=== PATIENT | male | born 1965 ===

== ENCOUNTER 2017-02-10 20:40 | Inpatient (IN) | payer OTHER ==
[2017-02-10] MEDS ORDERED: Multivitamin (MVI) 10 ML, Thiamine 100 MG, Folic Acid 1 MG in Sodium Chloride 0.9% 1,00... IV STA (21:19)
[2017-02-10 21:33] LABS: BASO # 0.1 K/uL (0.0-0.2); BASO % 1.4 % (0.0-2.0); EOS # 0.2 K/uL (0.0-0.7); EOS % 3.4 % (0.0-4.0); HEMATOCRIT 40.1 % (35.0-51.0); LYMPH # 1.7 K/uL (1.0-4.3); MEAN CELL VOLUME 99.5 fL (80.0-94.0); MEAN CORPUSCULAR HEMOGLOBIN 34.1 pg (27.0-31.0); MEAN CORPUSCULAR HGB CONC 34.3 g/dL (33.0-37.0); MEAN PLATELET VOLUME 8.3 fL (7.2-11.7); MONO # 0.6 K/uL (0.0-0.8); MONO % 10.9 % (0.0-10.0); RED CELL DISTRIBUTION WIDTH 13.2 % (11.5-14.5); WHITE BLOOD COUNT 5.8 K/uL (4.8-10.8)
[2017-02-10 21:36] LABS: CHLORIDE 103 mmol/L (98-107); POTASSIUM 3.7 mmol/L (3.6-5.2); SODIUM 141 mmol/L (132-148)
[2017-02-10 21:37] LABS: INR 1.1
[2017-02-10 21:38] LABS: AST/SGOT 43 U/L (17-59); BILIRUBIN,TOTAL 0.9 mg/dL (0.2-1.3); CARBON DIOXIDE 26 mmol/L (22-30); GFR AFRICAN-AMERICAN > 60
[2017-02-10 21:39] LABS: ALB/GLOB RATIO 1.4 (1.0-2.1); ALKALINE PHOSPHATASE 58 U/L (38-126); ALT/SGPT 39 U/L (21-72); BLOOD UREA NITROGEN 17 mg/dL (9-20); CALCIUM 8.9 mg/dl (8.6-10.4); GLUCOSE,RANDOM 77 mg/dL (75-110); MAGNESIUM 1.8 mg/dL (1.6-2.3); TOTAL PROTEIN 7.8 g/dL (6.3-8.3)
[2017-02-10 21:40] LABS: ALCOHOL SERUM < 10 mg/dl (0-10)
--- NOTE | 2017-02-10 22:06 | CT ---
EXAM: CT Head Without Intravenous Contrast CLINICAL HISTORY: 52 years old, male; Signs and symptoms; Other: Syncope, seizures, headaches; Additional info: Syncope vs. Seizures, headaches TECHNIQUE: Axial computed tomography images of the head/brain without intravenous contrast. This CT exam was performed using one or more of the following dose reduction techniques: automated exposure control, adjustment of the mA and/or kV according to patient size, and/or use of iterative reconstruction technique. EXAM DATE/TIME: Exam ordered 02/10/2017 9:18 PM COMPARISON: No relevant prior studies available. FINDINGS: Brain: There is a ramon-cisterna magna No hemorrhage. No significant white matter disease. No edema. Ventricles: Unremarkable. No ventriculomegaly. Bones/joints: Unremarkable. No acute fracture. Soft tissues: Unremarkable. Sinuses: Unremarkable as visualized. No acute sinusitis. Mastoid air cells: Unremarkable as visualized. No mastoid effusion. IMPRESSION: 1. No acute findings. 2. Ramon-cisterna magna
--- NOTE | 2017-02-10 22:23 | C.PDOC ---
History Of Present Illness Pt states he has been "passing out", latest episode 3 hours ago. He states that he quit drinking alcohol 6 days ago. Time Seen by Provider: 02/10/17 21:08 Chief Complaint (Nursing): Syncope History Per: Patient, [employer] History/Exam Limitations: language barrier Onset/Duration Of Symptoms: Days (few) Current Symptoms Are (Timing): Still Present Number Of Syncopal Episodes: 3 Seizure Or Post-ictal Symptoms: Post-ictal Period (?). denies: Incontinent Of Urine, Incontinent Of Stool, Bit Tongue Possible Causative Factor(s): Other (Recently stopped drinking alcohol) Severity: Moderate Additional History Per: Prior Records Past Medical History Reviewed: Historical Data, Nursing Documentation, Vital Signs Vital Signs: Last Vital Signs Temp 99 F 02/10/17 20:48 Pulse 69 02/10/17 22:29 Resp 18 02/10/17 22:29 BP 114/72 02/10/17 22:29 Pulse Ox 96 02/10/17 22:29 - Medical History Other PMH: Alcohol abuse Surgical History: No Surg Hx Family History: States: Unknown Family Hx - Social History Hx Alcohol Use: Yes Hx Substance Use: No Review Of Systems Except As Marked, All Systems Reviewed And Found Negative. Constitutional: Negative for: Fever Cardiovascular: Negative for: Chest Pain Respiratory: Negative for: Shortness of Breath Gastrointestinal: Negative for: Vomiting, Abdominal Pain Genitourinary: Negative for: Dysuria Musculoskeletal: Negative for: Neck Pain Skin: Negative for: Rash Neurological: Positive for: Headache. Negative for: Weakness Psych: Negative for: Psychosis Physical Exam - Physical Exam Appears: No Acute Distress Skin: Normal Color, Warm, Dry, No Rash Head: Atraumatic, Normacephalic Eye(s): bilateral: PERRL, EOMI Tongue: No Bite, Other (Fasciculations) Neck: Normal ROM, No Midline Cervical Tenderness, No Step Off Deformity, Supple Cardiovascular: Rhythm Regular Respiratory: Normal Breath Sounds, No Accessory Muscle Use Gastrointestinal/Abdominal: Soft, No Tenderness Back: No CVA Tenderness Extremity: Normal ROM, No Deformity Neurological/Psych: Oriented x3, Normal Motor, Normal Sensation, Other (Pt is tremulous) ED Course And Treatment - Laboratory Results Result Diagrams: 02/10/17 21:23 02/10/17 21:23 Lab Interpretation: No Acute Changes ECG: Interpreted By Me, Viewed By Me ECG Rhythm: Sinus Rhythm, R BBB (incomplete), Nonspecific Changes Rate From EC O2 Sat by Pulse Oximetry: 96 Pulse Ox Interpretation: Normal - CT Scan/US CT head Other Rad Studies (CT/US): Read By Radiologist, Radiology Report Reviewed CT/US Interpretation: IMPRESSION: 1. No acute findings. . 2. Caden-cisterna magna Progress - Interventions Interventions:: Observation, Intravenous fluid - Medications Administered Intravenous: Other (Ativan) - Data Reviewed Data Reviewed: Lab, Diagnostic imaging, EKG, Old records - Patient Status Patient status: Partially improved - Continuity of Care Discussed patient case with:: Patient, ED Nurse, On-call PMD-pt unassigned - Patient Plan Patient Plan: Admission, Telemetry Medical Decision Making Medical Decision Making: Syncopal episodes vs. alcohol withdrawal seizures. Disposition Discussed With DrArmando: Anish Morales Comment: He accepted pt on hospitalist service. Doctor Will See Patient In The: Hospital Counseled Patient/Family Regarding: Studies Performed, Diagnosis - Disposition Disposition: HOSPITALIZED Disposition Time: 22:47 Condition: FAIR - Clinical Impression Clinical Impression: Syncopal episodes, Alcohol withdrawal
--- NOTE | 2017-02-10 23:31 | CP.PCM.HP ---
<Fausto Pickering - Last Filed: 02/10/17 23:34> History of Present Illness - History of Present Illness History of Present Illness: This is a 52 yo male with past medical hx of alcohol abuse and dizziness presenting s/p syncopal episode. Pt was at his job earlier in the day. He works with boilers. This was about 3 PM. He was standing up and suddenly without warning collapsed to the ground. He cannot remember really the circumstances leading up to the event. The next thing he remembers is waking up on the ground feeling confused and weak. At that time, his co workers came to help him up. But the event was not witnessed. He continued to work for another 2 hours and then apparently a family member came to pick him up and took him into the hospital. He reports headache. He also says he has been feeling very dizzy in the past week. He denies fevers, chills, cough, vomiting, diarrhea, hematuria, bloody BMs. PMH: Alcohol abuse PSH: Left arm sx Allergies: NKDA Current home meds: none FH: Denies Social hx: No smoking. Reports drinking 40 beers daily (asked question multiple times). Has been heavy drinker for 3 yrs. No illegal drug use. Originally from [place]. Lives alone. Present on Admission - Present on Admission Any Indicators Present on Admission: No History of DVT/PE: No History of Uncontrolled Diabetes: No Urinary Catheter: No Decubitus Ulcer Present: No Review of Systems - Review of Systems All systems: reviewed and no additional remarkable complaints except Review of Systems: Negative except as per HPI. Past Patient History - Infectious Disease Hx of Infectious Diseases: None - Tetanus Immunizations Tetanus Immunization: Unknown - Past Medical History & Family History Past Medical History?: Yes Past Family History: Reviewed and not pertinent - Past Social History Smoking Status: Never Smoked Chewing Tobacco Use: No Cigar Use: No Alcohol: > 2 Drinks/Day Drugs: Denies Home Situation {Lives}: Alone Domestic Violence: Negative - PSYCHIATRIC Hx Substance Use: No - SURGICAL HISTORY Hx Surgeries: No Meds Allergies/Adverse Reactions: Allergies Allergy/AdvReac Type Severity Reaction Status Date / Time No Known Allergies Allergy Verified 02/10/17 20:48 Physical Exam - Constitutional Appears: Non-toxic, No Acute Distress - Head Exam Head Exam: ATRAUMATIC, NORMAL INSPECTION, NORMOCEPHALIC - Eye Exam Eye Exam: EOMI - ENT Exam ENT Exam: Mucous Membranes Moist - Neck Exam Neck exam: Positive for: Full Rom, Normal Inspection - Respiratory Exam Respiratory Exam: NORMAL BREATHING PATTERN. absent: Respiratory Distress - Cardiovascular Exam Cardiovascular Exam: +S1, +S2 - GI/Abdominal Exam GI & Abdominal Exam: Normal Bowel Sounds, Soft. absent: Tenderness - Extremities Exam Extremities exam: Positive for: full ROM, normal inspection - Neurological Exam Neurological exam: Alert, Oriented x3 - Psychiatric Exam Psychiatric exam: Normal Affect, Normal Mood - Skin Skin Exam: Dry, Intact, Normal Color, Warm Results - Vital Signs Recent Vital Signs: Last Vital Signs Temp 99 F 02/10/17 20:48 Pulse 69 02/10/17 22:29 Resp 18 02/10/17 22:29 BP 114/72 02/10/17 22:29 Pulse Ox 96 02/10/17 22:48 - Labs Result Diagrams: 02/10/17 21:23 02/10/17 21:23 Assessment & Plan - Assessment and Plan (Free Text) Assessment: This is a 52 yo male with past medical hx of alcohol abuse presenting with syncopal episode 1. Syncope -EKG -trops x 3 -urine drug screen -prolactin level -asa 81 mg po daily -crestor 5 mg po hs -neuro consult. Dr. Mg. recs appreciated -echo -carotid dopplers -orthostatics -EEG -HGB a1c -lipid panel 2. Hx of alcohol abuse -[facility] protocol -seizure precautions -prolactin level pending 3. GI/DVT ppx - protonix 40 daily -regular diet discussed with hospitalist <Anish Morales - Last Filed: 02/11/17 06:37> Results - Vital Signs Recent Vital Signs: Last Vital Signs Temp 98.1 F 02/11/17 03:45 Pulse 55 L 02/11/17 04:14 Resp 20 02/11/17 03:45 BP 119/69 02/11/17 03:45 Pulse Ox 100 02/11/17 03:45 - Labs Result Diagrams: 02/11/17 03:36 02/11/17 03:36 Labs: Laboratory Results - last 24 hr 02/10/17 02/10/17 02/10/17 23:27 23:27 23:34 WBC RBC Hgb Hct MCV MCH MCHC RDW Plt Count MPV Neut % (Auto) Lymph % (Auto) Howard % (Auto) Eos % (Auto) Baso % (Auto) Neut # Lymph # Howard # Eos # Baso # Sodium Potassium Chloride Carbon Dioxide Anion Gap BUN Creatinine Est GFR ( Amer) Est GFR (Non-Af Amer) Random Glucose Hemoglobin A1c Calcium Phosphorus Magnesium Total Bilirubin AST ALT Alkaline Phosphatase Troponin I Total Protein Albumin Globulin Albumin/Globulin Ratio Triglycerides Cholesterol LDL Cholesterol Direct HDL Cholesterol Prolactin 17.3 Urine Color Yellow Urine Clarity Clear Urine pH 6.0 Ur Specific [place] 1.025 Urine Protein Negative Urine Glucose (UA) Normal Urine Ketones Negative Urine Blood Negative Urine Nitrate Negative Urine Bilirubin Negative Urine Urobilinogen Normal Ur Leukocyte Esterase Neg Urine WBC (Auto) < 1 Urine RBC (Auto) 1 Urine Opiates Screen Negative Urine Methadone Screen Negative Ur Barbiturates Screen Negative Ur Phencyclidine Scrn Negative Ur Amphetamines Screen Negative U Benzodiazepines Scrn Negative U Oth Cocaine Metabols Negative U Cannabinoids Screen Negative 02/11/17 02/11/17 02/11/17 03:36 03:36 03:36 WBC 4.4 L RBC 3.84 L Hgb 13.1 Hct 38.2 MCV 99.6 H MCH 34.2 H MCHC 34.4 RDW 13.1 Plt Count 150 MPV 8.3 Neut % (Auto) 43.3 L Lymph % (Auto) 39.2 Howard % (Auto) 12.1 H Eos % (Auto) 5.2 H Baso % (Auto) 0.2 Neut # 1.9 Lymph # 1.7 Howard # 0.5 Eos # 0.2 Baso # 0.0 Sodium 137 Potassium 3.3 L Chloride 105 Carbon Dioxide 23 Anion Gap 13 BUN 13 Creatinine 0.6 L Est GFR ( Amer) > 60 Est GFR (Non-Af Amer) > 60 Random Glucose 80 Hemoglobin A1c 5.1 Calcium 8.2 L Phosphorus 3.9 Magnesium 1.5 L Total Bilirubin 0.9 AST 37 ALT 40 Alkaline Phosphatase 58 Troponin I < 0.0120 Total Protein 7.1 Albumin 3.9 Globulin 3.1 Albumin/Globulin Ratio 1.3 Triglycerides 49 Cholesterol 145 LDL Cholesterol Direct 71 HDL Cholesterol 59 Prolactin Urine Color Urine Clarity Urine pH Ur Specific [place] Urine Protein Urine Glucose (UA) Urine Ketones Urine Blood Urine Nitrate Urine Bilirubin Urine Urobilinogen Ur Leukocyte Esterase Urine WBC (Auto) Urine RBC (Auto) Urine Opiates Screen Urine Methadone Screen Ur Barbiturates Screen Ur Phencyclidine Scrn Ur Amphetamines Screen U Benzodiazepines Scrn U Oth Cocaine Metabols U Cannabinoids Screen Assessment & Plan - Date & Time Date: 02/11/17 (I have seen and examined the patient. I agree with the findings and plan of care as documented by Dr. Pickering. Patient with syncope. CT head negative. Neuro consult. ROMIx3 with ekg. Tele. 2D Echo. Carotid dopplers. Orthostatics. Fall precautions. Seizure Precautions. Also with alcohol abuse. CIWA protocol. Monitor for acute changes.) Time: 06:35 Attending/Attestation - Attestation I have personally seen and examined this patient.: Yes I have fully participated in the care of the patient.: Yes I have reviewed all pertinent clinical information: Yes
[2017-02-10 23:32] LABS: RBC URINE 1 /hpf (0-3); URINE BILIRUBIN NEGATIVE (NEGATIVE); URINE COLOR Yellow (YELLOW); URINE GLUCOSE (UA) NORMAL (Normal); URINE KETONE NEGATIVE (NEGATIVE); URINE LEUKOCYTE ESTERASE NEG Leu/uL (Negative); URINE PROTEIN NEGATIVE (NEGATIVE); URINE UROBILINOGEN NORMAL mg/dL (0.2-1.0); WBC URINE < 1 /hpf (0-5)
[2017-02-10 23:36] LABS: URINE BLOOD NEGATIVE (NEGATIVE)
[2017-02-11 00:45] VITALS: RESP 20
[2017-02-11 03:38] LABS: BASO % 0.2 % (0.0-2.0); EOS # 0.2 K/uL (0.0-0.7); EOS % 5.2 % (0.0-4.0); HEMATOCRIT 38.2 % (35.0-51.0); LYMPH # 1.7 K/uL (1.0-4.3); LYMPH % 39.2 % (20.0-40.0); MEAN CELL VOLUME 99.6 fL (80.0-94.0); MEAN CORPUSCULAR HEMOGLOBIN 34.2 pg (27.0-31.0); MEAN CORPUSCULAR HGB CONC 34.4 g/dL (33.0-37.0); MEAN PLATELET VOLUME 8.3 fL (7.2-11.7); MONO # 0.5 K/uL (0.0-0.8); MONO % 12.1 % (0.0-10.0); RED CELL DISTRIBUTION WIDTH 13.1 % (11.5-14.5); WHITE BLOOD COUNT 4.4 K/uL (4.8-10.8)
[2017-02-11 03:48] LABS: CHLORIDE 105 mmol/L (98-107); SODIUM 137 mmol/L (132-148)
[2017-02-11 03:49] LABS: POTASSIUM 3.3 mmol/L (3.6-5.2)
[2017-02-11 03:50] LABS: CHOLESTEROL 145 mg/dL (0-199); GFR AFRICAN-AMERICAN > 60
[2017-02-11 03:51] LABS: ALB/GLOB RATIO 1.3 (1.0-2.1); ALKALINE PHOSPHATASE 58 U/L (38-126); ALT/SGPT 40 U/L (21-72); AST/SGOT 37 U/L (17-59); BILIRUBIN,TOTAL 0.9 mg/dL (0.2-1.3); BLOOD UREA NITROGEN 13 mg/dL (9-20); CALCIUM 8.2 mg/dl (8.6-10.4); CARBON DIOXIDE 23 mmol/L (22-30); GLUCOSE,RANDOM 80 mg/dL (75-110); PHOSPHOROUS 3.9 mg/dL (2.5-4.5); TOTAL PROTEIN 7.1 g/dL (6.3-8.3)
[2017-02-11 03:52] LABS: MAGNESIUM 1.5 mg/dL (1.6-2.3)
[2017-02-11] MEDS ORDERED: Potassium Chloride 20 mEq ER Tab PO ONE (11:45)
[2017-02-11] MEDS: Magnesium Sulfate 1 gm in D5W 1 GM/100 ML BAG IVPB SCH ×2 (11:56→13:00)
[2017-02-11] MEDS ORDERED: Magnesium Sulfate 1 gm in D5W 1 GM/100 ML BAG IVPB ONE (14:36)
--- NOTE | 2017-02-11 15:30 | CP.PCM.PN ---
<Xiomara Hernandez - Last Filed: 02/11/17 15:30> Subjective - Date & Time of Evaluation Date of Evaluation: 02/11/17 Time of Evaluation: 09:00 - Subjective Subjective: Medicine Progress Note- Dr. Blackwood's Service: Patient seen and examined at bedside this AM. Patient reports feeling better this morning. Admits to several falls over the past week with associated LOC. Patient admits to heavy alcohol use (up to 40 cans of beer on a daily basis). However, drinking occurs in intervals lasting anywhere from 1 week of binge drinking to 1 month. He associates symptoms of unsteadiness and falls to not drinking over the past week. When asked how he did not drink over the past week , pt states he went to [place] for work without money on purpose. He has been anxious all week from lack of ETOH. Denies seizures. Admits to SOB after walking 1/2 a block which is also new over the past week. Objective - Vital Signs/Intake and Output Vital Signs (last 24 hours): Temp Pulse Resp BP Pulse Ox 98.7 F 57 L 20 125/68 100 02/11/17 08:52 02/11/17 08:52 02/11/17 08:52 02/11/17 08:52 02/11/17 08:52 - Medications Medications: Current Medications Chlordiazepoxide (Librium) 25 mg PO Q6 KRISTIN PRN Reason: Taper Stop: 02/15/17 11:59 Last Admin: 02/11/17 11:58 Dose: 25 mg Folic Acid (Folic Acid) 1 mg PO DAILY [facility] Last Admin: 02/11/17 11:10 Dose: 1 mg Magnesium Sulfate/Dextrose (Magnesium Sulfate 1 Gm/100 Ml D5w) 1 gm in 100 mls @ 100 mls/hr IVPB ONCE ONE Stop: 02/11/17 15:35 Lorazepam (Ativan) 1 mg IVP Q2 PRN PRN Reason: Seizure activity Pantoprazole Sodium (Protonix Inj) 40 mg IVP DAILY [facility] Last Admin: 02/11/17 11:10 Dose: 40 mg Rosuvastatin Calcium (Crestor) 5 mg PO HS [facility] Last Admin: 02/11/17 00:38 Dose: 5 mg Thiamine HCl (Vitamin B1 Tab) 100 mg PO DAILY [facility] Last Admin: 02/11/17 11:10 Dose: 100 mg - Labs Labs: 02/11/17 03:36 02/11/17 03:36 PT 11.9 SECONDS (9.7-12.2) 02/10/17 21:23 INR 1.1 02/10/17 21:23 APTT 30 SECONDS (21-34) 02/10/17 21:23 - Constitutional Appears: No Acute Distress - Head Exam Head Exam: NORMAL INSPECTION, NORMOCEPHALIC - Eye Exam Eye Exam: EOMI, Normal appearance, PERRL. absent: Scleral icterus Additional comments: NO nystagmus - ENT Exam ENT Exam: Mucous Membranes Moist - Respiratory Exam Respiratory Exam: Clear to Ausculation Bilateral, NORMAL BREATHING PATTERN - Cardiovascular Exam Cardiovascular Exam: REGULAR RHYTHM, +S1, +S2 - GI/Abdominal Exam GI & Abdominal Exam: Soft. absent: Distended, Tenderness - Extremities Exam Extremities Exam: Normal Inspection. absent: Pedal Edema Additional comments: +b/l UE tremor - Back Exam Back Exam: NORMAL INSPECTION - Neurological Exam Neurological Exam: Alert, Awake, Oriented x3 Neuro motor strength exam: Left Upper Extremity: 5, Right Upper Extremity: 5, Left Lower Extremity: 5, Right Lower Extremity: 5 - Psychiatric Exam Psychiatric exam: Normal Affect, Normal Mood - Skin Skin Exam: Normal Color, Warm Assessment and Plan (1) Syncopal episodes Assessment & Plan: Neurology consult- Dr. Umanzor- help appreciated Head CT negative for IC bleed. Positive for Caden Cysterna Magna. Troponin negative X3. EKG on admission shows NSR 63 bpm, RBB Prolactin WNL on admission UDS and Alcohol negative. f/u EEG f/u carotid dopplers f/u 2D ECHO f/u orthostatic VS f/u Vitamin B12, Folate, TSH Status: Acute (2) Alcohol abuse Assessment & Plan: [facility] protocol Received 1 banana bag * Librium taper- day 1 * Ativan Q2H PRN seizure * Folic Acid 1 mg PO daily * MV * Thiamine 100 mg PO daily Neurochecks Q4H Fall risk protocol Seizure precautions Aspiration precautions Status: Acute (3) Electrolyte abnormality Assessment & Plan: K+: 3.3, Mg+: 1.5 today. Magnesium and potassium replaced today. Status: Acute (4) Prophylactic measure Assessment & Plan: Lovenox 40 mg PO daily Protonix 40 mg IVP daily- monitor platelets. SCDs Status: Acute <Saadia Blackwood V - Last Filed: 02/11/17 22:28> Objective - Vital Signs/Intake and Output Vital Signs (last 24 hours): Temp Pulse Resp BP Pulse Ox 98 F 57 L 20 110/64 97 02/11/17 15:47 02/11/17 15:47 02/11/17 15:47 02/11/17 15:47 02/11/17 15:47 - Medications Medications: Current Medications Chlordiazepoxide (Librium) 25 mg PO Q6 [facility] PRN Reason: Taper Stop: 02/15/17 11:59 Last Admin: 02/11/17 18:05 Dose: 25 mg Enoxaparin Sodium (Lovenox) 40 mg SC DAILY [facility] Folic Acid (Folic Acid) 1 mg PO DAILY [facility] Last Admin: 02/11/17 11:10 Dose: 1 mg Lorazepam (Ativan) 1 mg IVP Q2 PRN PRN Reason: Seizure activity Multivitamins (Hexavitamin) 1 tab PO DAILY [facility] Last Admin: 02/11/17 18:05 Dose: 1 tab Pantoprazole Sodium (Protonix Inj) 40 mg IVP DAILY [facility] Last Admin: 02/11/17 11:10 Dose: 40 mg Rosuvastatin Calcium (Crestor) 5 mg PO HS [facility] Last Admin: 02/11/17 00:38 Dose: 5 mg Thiamine HCl (Vitamin B1 Tab) 100 mg PO DAILY [facility] Last Admin: 02/11/17 11:10 Dose: 100 mg - Labs Labs: 02/11/17 03:36 02/11/17 03:36 PT 11.9 SECONDS (9.7-12.2) 02/10/17 21:23 INR 1.1 02/10/17 21:23 APTT 30 SECONDS (21-34) 02/10/17 21:23 Attending/Attestation - Attestation I have personally seen and examined this patient.: Yes I have fully participated in the care of the patient.: Yes I have reviewed all pertinent clinical information, including history, physical exam and plan: Yes Notes (Text): Patient seen, examined, and case discussed with day-time resident. Patient admits to drinking 12 ounce, 40 beers a day. Patient reports he has tremors when he does not drink. Patient reports he has been drinking like this for 3 years but does not know why. Patient reports he has "passed out" in the past. (1) Syncope Assessment & Plan: Strong suspicion for alcohol withdrawal seizure Neurology consult- Dr. Mg- help appreciated Head CT (02/10/17): no acute findings. Positive for Caden Cysterna Magna. Troponin negative X3. EKG on admission shows NSR 63 bpm; repeat shows NSR Prolactin WNL on admission UDS and Alcohol negative. f/u EEG f/u carotid dopplers f/u 2D ECHO f/u orthostatic VS-->Patient is not orthostatic f/u Vitamin B12, Folate, TSH Status: Acute (2) Alcohol abuse Assessment & Plan: CIWA protocol Received 1 banana bag * Librium taper- day 1 * Ativan 1mg IV Q2H PRN seizure * Folic Acid 1 mg PO daily * Multivitamin 1 tab PO daily * Thiamine 100 mg PO daily Neurochecks Q4H Fall risk protocol Seizure precautions Aspiration precautions Status: Acute (3) Electrolyte abnormality Assessment & Plan: K+: 3.3, Mg+: 1.5 today. Magnesium and potassium replaced today. Status: Acute (4) Prophylactic measure Assessment & Plan: Lovenox 40 mg PO daily Protonix 40 mg IVP daily- monitor platelets. SCDs PT eval/OT eval Seizure precautions Status: Acute
--- NOTE | 2017-02-11 15:40 | CP.PCM.CON ---
History of Present Illness - History of Present Illness History of Present Illness: Mr. Mc is a 52-year-old man who states that he usually drinks about 30-40 beers daily (all day and all night). However, he quit drinking 7 days ago. He works in the boiler room, felt dizzy and lost consciousness after a syncopal episode. According to the patient, he then proceeded to work for two hours after "passing out". He was brought to the hospital after he finished work. He denies headache, nausea, chest pain, shortness of breath, new weakness or sensory changes. Review of Systems - Review of Systems All systems: reviewed and no additional remarkable complaints except Past Patient History - Infectious Disease Hx of Infectious Diseases: None - Tetanus Immunizations Tetanus Immunization: Unknown - Past Medical History & Family History Past Medical History?: Yes - Past Social History Smoking Status: Never Smoked - NEUROLOGICAL Hx Dizziness: Yes - MUSCULOSKELETAL/RHEUMATOLOGICAL Hx Falls: Yes - PSYCHIATRIC Hx Substance Use: No - SURGICAL HISTORY Hx Surgeries: No Other/Comment: left arm surgery from an accident 2 yrs ago - ANESTHESIA Hx Anesthesia: Yes Hx Anesthesia Reactions: No Meds Allergies/Adverse Reactions: Allergies Allergy/AdvReac Type Severity Reaction Status Date / Time No Known Allergies Allergy Verified 02/10/17 20:48 - Medications Medications: Current Medications Chlordiazepoxide (Librium) 25 mg PO Q6 [facility] PRN Reason: Taper Stop: 02/15/17 11:59 Last Admin: 02/11/17 11:58 Dose: 25 mg Folic Acid (Folic Acid) 1 mg PO DAILY [facility] Last Admin: 02/11/17 11:10 Dose: 1 mg Lorazepam (Ativan) 1 mg IVP Q2 PRN PRN Reason: Seizure activity Pantoprazole Sodium (Protonix Inj) 40 mg IVP DAILY [facility] Last Admin: 02/11/17 11:10 Dose: 40 mg Rosuvastatin Calcium (Crestor) 5 mg PO HS [facility] Last Admin: 02/11/17 00:38 Dose: 5 mg Thiamine HCl (Vitamin B1 Tab) 100 mg PO DAILY [facility] Last Admin: 02/11/17 11:10 Dose: 100 mg Physical Exam - Constitutional Appears: Well - Head Exam Head Exam: ATRAUMATIC, NORMAL INSPECTION, NORMOCEPHALIC - Eye Exam Eye Exam: EOMI, Normal appearance, PERRL - ENT Exam ENT Exam: Mucous Membranes Moist, Normal Exam - Neck Exam Neck exam: Positive for: Normal Inspection - Respiratory Exam Respiratory Exam: Clear to Auscultation Bilateral, NORMAL BREATHING PATTERN - Cardiovascular Exam Cardiovascular Exam: REGULAR RHYTHM, +S1, +S2 - Neurological Exam Neurological exam: Alert, CN II-XII Intact, Normal Gait, Oriented x3, Reflexes Normal - Expanded Neurological Exam Expanded Patient oriented to: person, place, time Cranial nerves: EOM's Intact: Normal, Facial Sensation: Normal, Nystagmus: Normal Ataxia: No Cerebellar Function: Finger to Nose: Normal Upper motor neuron: Babinski Sign: Normal Sensory exam: Lower Extremity 2 Point Discrimination: Normal, Lower Extremity Light Touch: Normal, Lower Extremity Pin Prick: Normal, Lower Extremity Temperature: Normal, Upper Extremity 2 Point Discrimination: Normal, Upper Extremity Light Touch: Normal, Upper Extremity Pin Prick: Normal, Upper Extremity Temperature: Normal Neuro motor strength exam: Left Upper Extremity: 5, Right Upper Extremity: 5, Left Lower Extremity: 5, Right Lower Extremity: 5 DTR: Achilles Tendon Left: 2+, Achilles Tendon Right: 2+, Bicep Left: 2+, Bicep Right: 2+, Brachioradialis Left: 2+, Brachioradialis Right: 2+, Patellar Left: 2 +, Patellar Right: 2+, Tricep Left: 2+, Tricep Right: 2+ - Psychiatric Exam Psychiatric exam: Normal Affect, Normal Mood - Skin Skin Exam: Dry, Intact, Normal Color, Warm Results - Vital Signs Recent Vital Signs: Last Vital Signs Temp 98.7 F 02/11/17 08:52 Pulse 57 L 02/11/17 08:52 Resp 20 02/11/17 08:52 BP 125/68 02/11/17 08:52 Pulse Ox 100 02/11/17 08:52 - Labs Result Diagrams: 02/11/17 03:36 02/11/17 03:36 Labs: Laboratory Results - last 24 hr 02/10/17 02/10/17 02/10/17 23:27 23:27 23:34 WBC RBC Hgb Hct MCV MCH MCHC RDW Plt Count MPV Neut % (Auto) Lymph % (Auto) [place] % (Auto) Eos % (Auto) Baso % (Auto) Neut # Lymph # [place] # Eos # Baso # Sodium Potassium Chloride Carbon Dioxide Anion Gap BUN Creatinine Est GFR ( Amer) Est GFR (Non-Af Amer) Random Glucose Hemoglobin A1c Calcium Phosphorus Magnesium Total Bilirubin AST ALT Alkaline Phosphatase Troponin I Total Protein Albumin Globulin Albumin/Globulin Ratio Triglycerides Cholesterol LDL Cholesterol Direct HDL Cholesterol Prolactin 17.3 Urine Color Yellow Urine Clarity Clear Urine pH 6.0 Ur Specific [place] 1.025 Urine Protein Negative Urine Glucose (UA) Normal Urine Ketones Negative Urine Blood Negative Urine Nitrate Negative Urine Bilirubin Negative Urine Urobilinogen Normal Ur Leukocyte Esterase Neg Urine WBC (Auto) < 1 Urine RBC (Auto) 1 Urine Opiates Screen Negative Urine Methadone Screen Negative Ur Barbiturates Screen Negative Ur Phencyclidine Scrn Negative Ur Amphetamines Screen Negative U Benzodiazepines Scrn Negative U Oth Cocaine Metabols Negative U Cannabinoids Screen Negative 02/11/17 02/11/17 02/11/17 03:36 03:36 03:36 WBC 4.4 L RBC 3.84 L Hgb 13.1 Hct 38.2 MCV 99.6 H MCH 34.2 H MCHC 34.4 RDW 13.1 Plt Count 150 MPV 8.3 Neut % (Auto) 43.3 L Lymph % (Auto) 39.2 [place] % (Auto) 12.1 H Eos % (Auto) 5.2 H Baso % (Auto) 0.2 Neut # 1.9 Lymph # 1.7 [place] # 0.5 Eos # 0.2 Baso # 0.0 Sodium 137 Potassium 3.3 L Chloride 105 Carbon Dioxide 23 Anion Gap 13 BUN 13 Creatinine 0.6 L Est GFR ( Amer) > 60 Est GFR (Non-Af Amer) > 60 Random Glucose 80 Hemoglobin A1c 5.1 Calcium 8.2 L Phosphorus 3.9 Magnesium 1.5 L Total Bilirubin 0.9 AST 37 ALT 40 Alkaline Phosphatase 58 Troponin I < 0.0120 Total Protein 7.1 Albumin 3.9 Globulin 3.1 Albumin/Globulin Ratio 1.3 Triglycerides 49 Cholesterol 145 LDL Cholesterol Direct 71 HDL Cholesterol 59 Prolactin Urine Color Urine Clarity Urine pH Ur Specific [place] Urine Protein Urine Glucose (UA) Urine Ketones Urine Blood Urine Nitrate Urine Bilirubin Urine Urobilinogen Ur Leukocyte Esterase Urine WBC (Auto) Urine RBC (Auto) Urine Opiates Screen Urine Methadone Screen Ur Barbiturates Screen Ur Phencyclidine Scrn Ur Amphetamines Screen U Benzodiazepines Scrn U Oth Cocaine Metabols U Cannabinoids Screen 02/11/17 11:44 WBC RBC Hgb Hct MCV MCH MCHC RDW Plt Count MPV Neut % (Auto) Lymph % (Auto) [place] % (Auto) Eos % (Auto) Baso % (Auto) Neut # Lymph # [place] # Eos # Baso # Sodium Potassium Chloride Carbon Dioxide Anion Gap BUN Creatinine Est GFR ( Amer) Est GFR (Non-Af Amer) Random Glucose Hemoglobin A1c Calcium Phosphorus Magnesium Total Bilirubin AST ALT Alkaline Phosphatase Troponin I < 0.0120 Total Protein Albumin Globulin Albumin/Globulin Ratio Triglycerides Cholesterol LDL Cholesterol Direct HDL Cholesterol Prolactin Urine Color Urine Clarity Urine pH Ur Specific [place] Urine Protein Urine Glucose (UA) Urine Ketones Urine Blood Urine Nitrate Urine Bilirubin Urine Urobilinogen Ur Leukocyte Esterase Urine WBC (Auto) Urine RBC (Auto) Urine Opiates Screen Urine Methadone Screen Ur Barbiturates Screen Ur Phencyclidine Scrn Ur Amphetamines Screen U Benzodiazepines Scrn U Oth Cocaine Metabols U Cannabinoids Screen - Imaging and Cardiology CT scan - head Status: Image reviewed by me, Report reviewed by me (No acute findings. ) Assessment & Plan - Assessment and Plan (Free Text) Assessment: Possible alcohol withdrawal seizure, but no evidence of urinary incontinence, tongue biting, and the event was not witnessed. CT scan of the head did not show any acute findings or evidence of lesions to explain the occurrence. The patient is now back to baseline. Plan: Continue hydration. CIWA protocol. Psych consult and case management. Obtain an EEG when logistically possible (may be done as outpatient). Thank you for this consultation.
[2017-02-11] MEDS: Multiple Vitamins Tab PO SCH (18:05)
--- NOTE | 2017-02-12 04:18 | CP.PCM.PN ---
<Teo Mcqueen - Last Filed: 02/12/17 08:23> Subjective - Date & Time of Evaluation Date of Evaluation: 02/12/17 Time of Evaluation: 04:14 - Subjective Subjective: PGY-[address] Blackwood Pt seen and examine at bedside. Nursing reports no acute events overnight. Pt on Librium taper. He admits slight upper extremity tremor but denies confusion, abdominal pain, N/V. He denies any episodes of dizziness, seizure-like activity , or loss of consciousness since admission. He reports no further episodes of shortness of breath. He further denies headache, nausea, chest pain, new weakness or sensory changes. Objective - Vital Signs/Intake and Output Vital Signs (last 24 hours): Temp Pulse Resp BP Pulse Ox 97.4 F L 54 L 20 112/72 100 02/11/17 23:10 02/11/17 23:43 02/11/17 23:10 02/11/17 23:10 02/11/17 23:10 Intake and Output: 02/11/17 02/12/17 18:59 06:59 Intake Total 350 Output Total 300 Balance 50 - Medications Medications: Current Medications Chlordiazepoxide (Librium) 25 mg PO Q6 [facility] PRN Reason: Taper Stop: 02/15/17 11:59 Last Admin: 02/12/17 00:03 Dose: 25 mg Enoxaparin Sodium (Lovenox) 40 mg SC DAILY [facility] Folic Acid (Folic Acid) 1 mg PO DAILY [facility] Last Admin: 02/11/17 11:10 Dose: 1 mg Lorazepam (Ativan) 1 mg IVP Q2 PRN PRN Reason: Seizure activity Multivitamins (Hexavitamin) 1 tab PO DAILY [facility] Last Admin: 02/11/17 18:05 Dose: 1 tab Pantoprazole Sodium (Protonix Inj) 40 mg IVP DAILY [facility] Last Admin: 02/11/17 11:10 Dose: 40 mg Rosuvastatin Calcium (Crestor) 5 mg PO HS [facility] Last Admin: 02/11/17 22:26 Dose: 5 mg Thiamine HCl (Vitamin B1 Tab) 100 mg PO DAILY [facility] Last Admin: 02/11/17 11:10 Dose: 100 mg - Labs Labs: 02/11/17 03:36 02/11/17 03:36 PT 11.9 SECONDS (9.7-12.2) 02/10/17 21:23 INR 1.1 02/10/17 21:23 APTT 30 SECONDS (21-34) 02/10/17 21:23 - Constitutional Appears: Well - Head Exam Head Exam: ATRAUMATIC, NORMAL INSPECTION, NORMOCEPHALIC - Eye Exam Eye Exam: EOMI Pupil Exam: PERRL - ENT Exam ENT Exam: Mucous Membranes Moist - Respiratory Exam Respiratory Exam: Clear to Ausculation Bilateral, NORMAL BREATHING PATTERN - Cardiovascular Exam Cardiovascular Exam: REGULAR RHYTHM, +S1, +S2 - GI/Abdominal Exam GI & Abdominal Exam: Soft, Normal Bowel Sounds. absent: Tenderness - Extremities Exam Additional comments: slight upper extremity tremor - Back Exam Back Exam: absent: CVA tenderness (L), CVA tenderness (R) - Neurological Exam Neurological Exam: Alert, Awake, Oriented x3 - Psychiatric Exam Psychiatric exam: Normal Affect, Normal Mood - Skin Skin Exam: Normal Color, Warm Assessment and Plan - Assessment and Plan (Free Text) Plan: (1) Syncope Assessment & Plan: Strong suspicion for alcohol withdrawal seizure Head CT (02/10/17): no acute findings. Positive for Caden Cysterna Magna. Troponin negative X3. EKG on admission shows NSR 63 bpm; repeat shows NSR Prolactin WNL on admission UDS and Alcohol negative. f/u EEG f/u carotid dopplers f/u 2D ECHO f/u orthostatic VS-->Patient is not orthostatic f/u Vitamin B12, Folate, TSH Neurology consult- Dr. Mg- help appreciated - continue hydration, [facility] - F/u EEG report (2) Alcohol abuse Assessment & Plan: [facility] protocol Received 1 banana bag * Librium taper- day 1 * Ativan 1mg IV Q2H PRN seizure * Folic Acid 1 mg PO daily * Multivitamin 1 tab PO daily * Thiamine 100 mg PO daily Neurochecks Q4H Fall risk protocol Seizure precautions Aspiration precautions (3) Electrolyte abnormality Assessment & Plan: f/u AM K+ and Mg2+ (4) Prophylactic measure Assessment & Plan: Lovenox 40 mg PO daily Protonix 40 mg IVP daily- monitor platelets. SCDs PT eval/OT eval Seizure precautions <Saadia Blackwood V - Last Filed: 02/12/17 10:05> Objective - Vital Signs/Intake and Output Vital Signs (last 24 hours): Temp Pulse Resp BP Pulse Ox 97.5 F L 56 L 20 116/63 100 02/12/17 08:17 02/12/17 08:17 02/12/17 08:17 02/12/17 08:17 02/12/17 08:17 Intake and Output: 02/12/17 02/12/17 06:59 18:59 Intake Total 350 Output Total 1200 Balance -850 - Medications Medications: Current Medications Chlordiazepoxide (Librium) 25 mg PO Q6 [facility] PRN Reason: Taper Stop: 02/15/17 11:59 Last Admin: 02/12/17 05:47 Dose: 25 mg Enoxaparin Sodium (Lovenox) 40 mg SC DAILY [facility] Last Admin: 02/12/17 09:36 Dose: 40 mg Folic Acid (Folic Acid) 1 mg PO DAILY [facility] Last Admin: 02/12/17 09:36 Dose: 1 mg Lorazepam (Ativan) 1 mg IVP Q2 PRN PRN Reason: Seizure activity Multivitamins (Hexavitamin) 1 tab PO DAILY [facility] Last Admin: 02/12/17 09:37 Dose: 1 tab Pantoprazole Sodium (Protonix Inj) 40 mg IVP DAILY [facility] Last Admin: 02/12/17 09:37 Dose: 40 mg Rosuvastatin Calcium (Crestor) 5 mg PO HS [facility] Last Admin: 02/11/17 22:26 Dose: 5 mg Thiamine HCl (Vitamin B1 Tab) 100 mg PO DAILY [facility] Last Admin: 02/12/17 09:36 Dose: 100 mg - Labs Labs: 02/12/17 07:46 02/12/17 07:46 PT 11.9 SECONDS (9.7-12.2) 02/10/17 21:23 INR 1.1 02/10/17 21:23 APTT 30 SECONDS (21-34) 02/10/17 21:23 Attending/Attestation - Attestation I have personally seen and examined this patient.: Yes I have fully participated in the care of the patient.: Yes I have reviewed all pertinent clinical information, including history, physical exam and plan: Yes Notes (Text): Patient seen, examined, and case discussed with day-time resident. Patient seen this morning. Patient denies acute complaints except for ringing in the ears. Patient is currently on Librium Day 2 Taper. Patient is bradycardic. On telemetry, patient appears in sinus bradycardia, asymptomatic. Patient ordered for EKG this morning to confirm. Will order ENT consult for persistent ringing in the ears Assessment/Plan (1) Alcohol withdrawal seizure Assessment & Plan: Strong suspicion for cause of syncope Neurology consult- Dr. Mg- help appreciated Head CT (02/10/17): no acute findings. Positive for Caden Cysterna Magna. Troponin negative X3. EKG on admission shows NSR 63 bpm; repeat shows NSR Prolactin WNL on admission UDS and Alcohol negative. f/u EEG pending f/u carotid dopplers pending f/u 2D ECHO pending f/u orthostatic VS-->Patient is not orthostatic Vitamin B12 within normal Folate within normal TSH within normal limits Status: Acute (2) Alcohol abuse Assessment & Plan: CIWA protocol Librium taper- day 2 Ativan 1mg IV Q2H PRN seizure Folic Acid 1 mg PO daily Multivitamin 1 tab PO daily Thiamine 100 mg PO daily Neurochecks Q4H Fall risk protocol Seizure precautions Aspiration precautions Status: Acute (3) Electrolyte abnormality Assessment & Plan: within normal limits monitor and replete if necessary Status: Acute (4) Prophylactic measure Assessment & Plan: Lovenox 40 mg PO daily Protonix 40 mg IVP daily- monitor platelets. SCDs PT eval/OT eval Seizure precautions Status: Acute
[2017-02-12 08:01] LABS: BASO # 0.1 K/uL (0.0-0.2); BASO % 1.3 % (0.0-2.0); EOS # 0.3 K/uL (0.0-0.7); EOS % 6.5 % (0.0-4.0); HEMATOCRIT 41.4 % (35.0-51.0); LYMPH # 1.5 K/uL (1.0-4.3); LYMPH % 36.9 % (20.0-40.0); MEAN CELL VOLUME 100.3 fL (80.0-94.0); MEAN CORPUSCULAR HEMOGLOBIN 34.5 pg (27.0-31.0); MEAN CORPUSCULAR HGB CONC 34.4 g/dL (33.0-37.0); MEAN PLATELET VOLUME 8.3 fL (7.2-11.7); MONO # 0.4 K/uL (0.0-0.8); MONO % 10.1 % (0.0-10.0); NRBC % 0.1 % (0.0-2.0); RED CELL DISTRIBUTION WIDTH 13.3 % (11.5-14.5); WHITE BLOOD COUNT 4.2 K/uL (4.8-10.8)
[2017-02-12 08:08] LABS: CHLORIDE 101 mmol/L (98-107); SODIUM 137 mmol/L (132-148)
[2017-02-12 08:09] LABS: POTASSIUM 3.7 mmol/L (3.6-5.2)
[2017-02-12 08:11] LABS: ALB/GLOB RATIO 1.2 (1.0-2.1); ALKALINE PHOSPHATASE 58 U/L (38-126); AST/SGOT 37 U/L (17-59); BILIRUBIN,TOTAL 0.8 mg/dL (0.2-1.3); BLOOD UREA NITROGEN 8 mg/dL (9-20); CARBON DIOXIDE 25 mmol/L (22-30); GFR AFRICAN-AMERICAN > 60; GLUCOSE,RANDOM 87 mg/dL (75-110); PHOSPHOROUS 3.3 mg/dL (2.5-4.5); TOTAL PROTEIN 7.4 g/dL (6.3-8.3)
[2017-02-12 08:12] LABS: ALT/SGPT 31 U/L (21-72); CALCIUM 8.6 mg/dl (8.6-10.4); MAGNESIUM 1.8 mg/dL (1.6-2.3)
[2017-02-12 08:41] LABS: THYROID STIMULATING HORMONE 1.06 mIU/L (0.46-4.68)
[2017-02-12 09:16] LABS: FOLATE 13.7 ng/mL
[2017-02-12] MEDS: Enoxaparin 40 mg Syringe SC SCH (09:36)
[2017-02-12] MEDS: Multiple Vitamins Tab PO SCH (09:37)
[2017-02-13 07:17] LABS: MEAN CORPUSCULAR HEMOGLOBIN 34.7 pg (27.0-31.0); MEAN CORPUSCULAR HGB CONC 34.6 g/dL (33.0-37.0)
[2017-02-13 07:30] LABS: BASO # 0.1 K/uL (0.0-0.2); BASO % 1.5 % (0.0-2.0); EOS # 0.3 K/uL (0.0-0.7); EOS % 6.2 % (0.0-4.0); HEMATOCRIT 42.7 % (35.0-51.0); LYMPH # 1.6 K/uL (1.0-4.3); MEAN CELL VOLUME 100.3 fL (80.0-94.0); MEAN PLATELET VOLUME 8.4 fL (7.2-11.7); MONO # 0.5 K/uL (0.0-0.8); MONO % 10.4 % (0.0-10.0); NRBC % 0.2 % (0.0-2.0); WHITE BLOOD COUNT 4.5 K/uL (4.8-10.8)
[2017-02-13 07:32] LABS: CHLORIDE 100 mmol/L (98-107); POTASSIUM 4.1 mmol/L (3.6-5.2); SODIUM 138 mmol/L (132-148)
[2017-02-13 07:34] LABS: ALB/GLOB RATIO 1.2 (1.0-2.1); ALKALINE PHOSPHATASE 59 U/L (38-126); ALT/SGPT 28 U/L (21-72); AST/SGOT 36 U/L (17-59); BILIRUBIN,TOTAL 0.7 mg/dL (0.2-1.3); BLOOD UREA NITROGEN 11 mg/dL (9-20); CARBON DIOXIDE 29 mmol/L (22-30); GFR AFRICAN-AMERICAN > 60; TOTAL PROTEIN 7.5 g/dL (6.3-8.3)
[2017-02-13 07:35] VITALS: O2SAT 99
[2017-02-13 07:35] LABS: GLUCOSE,RANDOM 85 mg/dL (75-110); MAGNESIUM 1.7 mg/dL (1.6-2.3); PHOSPHOROUS 3.9 mg/dL (2.5-4.5)
[2017-02-13] MEDS: Enoxaparin 40 mg Syringe SC SCH (10:00)
[2017-02-13] MEDS: Multiple Vitamins Tab PO SCH (10:00)
--- NOTE | 2017-02-13 11:18 | CON ---
DATE: 02/13/2017 REASON FOR CONSULTATION: Tinnitus. HISTORY OF PRESENT ILLNESS: This is a 52-year-old male with a 2-week history of bilateral tinnitus, mild, constant, with no hearing loss. PAST MEDICAL HISTORY: As noted in the chart by me. MEDICATIONS: As noted on the chart by me. PHYSICAL EXAMINATION: HEAD: Atraumatic, normocephalic. FACE: Good facial movements bilaterally. CONSTITUTIONAL: Well-developed, well-nourished. COMMUNICATION: Communicates very appropriately. EXTERNAL NOSE AND EARS: No masses, no lesions, no erythema, no edema. EARS: TM intact. No fluid, no masses, no lesions, no erythema, no edema. NOSE: Deviated septum. No masses, no lesions, no erythema, no edema. ORAL CAVITY AND OROPHARYNX: No masses, no lesions, no erythema, no edema. NECK: Supple. LIPS AND GUMS: No masses, no lesions, no erythema, no edema. LYMPH NODES: No lymphadenopathy of the neck. THYROID: No thyromegaly, no goiter. ASSESSMENT: 1. Deviated septum. 2. Tinnitus. PLAN: I spoke to the primary care doctor, Dr. Jason, taking care of the patient. I recommend the patient be placed on prednisone 60 mg p.o. q. day for days 1-10, 40 mg p.o. q. day for days 11 and 1 2, and 20 mg p.o. q. day for days 13 and 14. The patient is to follow up in the office afterwards. Rico uPentes MD cc: [id number] TT: 02/13/2017 11:17:44 Confirmation # [id number] Dictation # [id number] janell
--- NOTE | 2017-02-13 11:49 | CP.PCM.PN ---
<Fausto Pickering - Last Filed: 02/13/17 11:49> Subjective - Date & Time of Evaluation Date of Evaluation: 02/13/17 Time of Evaluation: 11:45 - Subjective Subjective: Medicine progress note. Attending: Dr. Jason Pt seen and examined at bedside. No acute distress. No events overnight. Feels overall better, but still some dizziness. Still a little ringing in ears, ENT workup in progress. No tremors, no cp, no sob, fevers, chills. Objective - Vital Signs/Intake and Output Vital Signs (last 24 hours): Temp Pulse Resp BP Pulse Ox 97.5 F L 58 L 20 115/72 99 02/13/17 07:30 02/13/17 07:30 02/13/17 07:30 02/13/17 07:30 02/13/17 07:30 Intake and Output: 02/13/17 02/13/17 06:59 18:59 Intake Total 520 Balance 520 - Medications Medications: Current Medications Chlordiazepoxide (Librium) 25 mg PO TID [facility] PRN Reason: Taper Stop: 02/15/17 11:59 Last Admin: 02/12/17 17:24 Dose: 25 mg Enoxaparin Sodium (Lovenox) 40 mg SC DAILY [facility] Last Admin: 02/12/17 09:36 Dose: 40 mg Folic Acid (Folic Acid) 1 mg PO DAILY [facility] Last Admin: 02/12/17 09:36 Dose: 1 mg Lorazepam (Ativan) 1 mg IVP Q2 PRN PRN Reason: Seizure activity Meclizine HCl (Antivert) 12.5 mg PO TID PRN PRN Reason: Dizziness Multivitamins (Hexavitamin) 1 tab PO DAILY [facility] Last Admin: 02/12/17 09:37 Dose: 1 tab Pantoprazole Sodium (Protonix Inj) 40 mg IVP DAILY [facility] Last Admin: 02/12/17 09:37 Dose: 40 mg Rosuvastatin Calcium (Crestor) 5 mg PO HS [facility] Last Admin: 02/12/17 21:41 Dose: 5 mg Thiamine HCl (Vitamin B1 Tab) 100 mg PO DAILY [facility] Last Admin: 02/12/17 09:36 Dose: 100 mg - Labs Labs: 02/13/17 07:05 02/13/17 07:05 PT 11.9 SECONDS (9.7-12.2) 02/10/17 21:23 INR 1.1 02/10/17 21:23 APTT 30 SECONDS (21-34) 02/10/17 21:23 - Constitutional Appears: Non-toxic, No Acute Distress - Head Exam Head Exam: ATRAUMATIC, NORMAL INSPECTION, NORMOCEPHALIC - Eye Exam Eye Exam: EOMI - ENT Exam ENT Exam: Mucous Membranes Moist - Neck Exam Neck Exam: Full ROM, Normal Inspection - Respiratory Exam Respiratory Exam: NORMAL BREATHING PATTERN. absent: Respiratory Distress - Cardiovascular Exam Cardiovascular Exam: +S1, +S2 - GI/Abdominal Exam GI & Abdominal Exam: Soft, Normal Bowel Sounds. absent: Tenderness - Extremities Exam Extremities Exam: Full ROM, Normal Inspection - Back Exam Back Exam: NORMAL INSPECTION - Neurological Exam Neurological Exam: Alert, Awake, Oriented x3 - Psychiatric Exam Psychiatric exam: Normal Affect, Normal Mood - Skin Skin Exam: Dry, Intact, Normal Color, Warm Assessment and Plan - Assessment and Plan (Free Text) Assessment: (1) Syncope Assessment & Plan: Strong suspicion for alcohol withdrawal seizure Head CT (02/10/17): no acute findings. Positive for Caden Cisterna Magna. Troponin negative X3. EKG on admission shows NSR 63 bpm; repeat shows NSR Prolactin WNL on admission UDS and Alcohol negative. f/u EEG f/u carotid dopplers f/u 2D ECHO f/u orthostatic VS-->Patient is not orthostatic f/u Vitamin B12, Folate, TSH Neurology consult- Dr. Mg- help appreciated - continue hydration, CIWA - F/u EEG report -will order MRI for today because of persistent dizziness -will give 12.5 mg PO meclizine for dizziness (2) Alcohol abuse Assessment & Plan: [facility] protocol Received 1 banana bag * Librium taper- 25 mg PO tid * Ativan 1mg IV Q2H PRN seizure * Folic Acid 1 mg PO daily * Multivitamin 1 tab PO daily * Thiamine 100 mg PO daily Neurochecks Q4H Fall risk protocol Seizure precautions Aspiration precautions (3) Electrolyte abnormality Assessment & Plan: f/u AM K+ and Mg2+>> within normal limits (4) Prophylactic measure Assessment & Plan: Lovenox 40 mg PO daily Protonix 40 mg IVP daily- monitor platelets. SCDs PT eval/OT eval Seizure precautions discussed with Dr. Jason. <Felipe Jason - Last Filed: 03/22/17 11:58> Objective - Vital Signs/Intake and Output Vital Signs (last 24 hours): Temp Pulse Resp BP Pulse Ox 98.2 F 72 20 111/73 99 02/13/17 15:00 02/13/17 15:00 02/13/17 15:00 02/13/17 15:00 02/13/17 15:00 - Labs Labs: 02/13/17 07:05 02/13/17 07:05 PT 11.9 SECONDS (9.7-12.2) 02/10/17 21:23 INR 1.1 02/10/17 21:23 APTT 30 SECONDS (21-34) 02/10/17 21:23 Attending/Attestation - Attestation I have personally seen and examined this patient.: Yes I have fully participated in the care of the patient.: Yes I have reviewed all pertinent clinical information, including history, physical exam and plan: Yes Notes (Text): Patient seen and examined with the resident. Agree with the resident's evaluation, assessment and plan. Syncope likely due to alcohol withdrawal seizure Alcohol abuse and acute withdrawal Delerigildardo Haynes
--- NOTE | 2017-02-13 12:10 | CARD ---
APPROVED REPORT EKG Measurement Heart [id number] <Conclusion> Normal sinus rhythm Incomplete right bundle branch block Borderline ECG
--- NOTE | 2017-02-13 15:23 | VASCLAB ---
PROCEDURE: HISTORY: syncope COMPARISON: None available. TECHNIQUE: Grayscale and duplex Doppler evaluation of the cervical carotid and vertebral arteries were performed. The common carotid, carotid bifurcations and cervical Internal Carotid Artery (ICA) and proximal External Carotid Artery (ECA) were evaluated. The vertebral arteries were evaluated for gross patency and flow direction. Report prepared by Jose Yarbrough, BS, RVT FINDINGS: RIGHT CAROTID ARTERIES: 1. Common Carotid Artery: No significant focal plaque formation of the right common carotid artery. Maximum Peak Systolic velocity: 102 cm/sec: End-diastolic velocity 15 cm/sec. 2. Carotid Bifurcation: plaque formation. Maximum Peak Systolic velocity: 98 cm/sec: End-diastolic velocity 13 cm/sec. 3. Internal Carotid Artery: Plaque description: 3.1. Proximal Segment: Peak systolic velocity 85 cm/sec: End-diastolic velocity 24 cm/sec - % stenosis 0-15% 3.2. Middle Segment: Peak systolic velocity 67 cm/sec: End-diastolic velocity 18 cm/sec - % stenosis 0-15% 3.3. Distal Segment: Peak systolic velocity 66 cm/sec: End-diastolic velocity 20 cm/sec - % stenosis 0-15% 4. External Carotid Artery: No significant focal plaque formation. Peak systolic velocity 98 cm/sec 5. ICA/CCA Ratio: 1.0 LEFT CAROTID ARTERIES: 1. Common Carotid Artery: No significant focal plaque formation of the left common carotid artery. Maximum Peak Systolic velocity: 112 cm/sec: End-diastolic velocity 21 cm/sec. 2. Carotid Bifurcation: plaque formation. Maximum Peak Systolic velocity: 99 cm/sec: End-diastolic velocity 21 cm/sec. 3. Internal Carotid Artery: Plaque description: 3.1. Proximal Segment: Peak systolic velocity 61 cm/sec: End-diastolic velocity 24 cm/sec - % stenosis 0-15% 3.2. Middle Segment: Peak systolic velocity 61 cm/sec: End-diastolic velocity 27 cm/sec - % stenosis 0-15% 3.3. Distal Segment: Peak systolic velocity 52 cm/sec: End-diastolic velocity 20 cm/sec - % stenosis 0-15% 4. External Carotid Artery: No significant focal plaque formation. Peak systolic velocity 77 cm/sec 5. ICA/CCA Ratio: VERTEBRAL ARTERIES: 1. Right Vertebral Artery: The right vertebral artery flow direction is antegrade. 2. Left Vertebral Artery: The left vertebral artery flow direction is antegrade. OTHER FINDINGS: 1. Right Brachial Blood pressure: 118 mmHg. 2. Left Brachial Blood pressure: 120 mmHg. IMPRESSION: RIGHT: Duplex scan does not suggest hemodynamically significant stenosis of the right extracranial carotid arteries. LEFT: Duplex scan does not suggest hemodynamically significant stenosis of the left extracranial carotid arteries.
--- NOTE | 2017-02-13 15:37 | MRI ---
PROCEDURE: MRI BRAIN WITHOUT CONTRAST HISTORY: Dizziness COMPARISON: Noncontrast head CT from 02/10/2017. TECHNIQUE: Multiplanar, multisequence MR images of the brain were obtained without intravenous contrast enhancement. FINDINGS: HEMORRHAGE: None DWI: No evidence of an acute or early subacute infarction. BRAIN PARENCHYMA: There are mild chronic microangiopathic changes. There is no mass, mass effect or abnormal extra-axial fluid collection. VENTRICLES: There is mild phase advanced global parenchymal volume loss and proportionate enlargement of the ventricles and cortical sulci. There is a ramon cisterna magna. CRANIUM: There is normal bone marrow signal pattern. ORBITS: Grossly unremarkable. PARANASAL SINUSES/MASTOIDS: The paranasal sinuses are predominantly clear. Bilateral mastoid effusions, larger on the right. VASCULAR SYSTEM: Skull base flow voids intact. OTHER FINDINGS: None. IMPRESSION: No acute intracranial abnormality. Mild chronic microangiopathic changes. Mild global parenchymal volume loss, advanced for the patient's age. Ramon cisterna magna.
[2017-02-13 15:54] VITALS: BP 111/73; PULSE 72; TEMP 98.2
--- NOTE | 2017-02-13 17:44 | CP.PCM.DIS ---
<Fausto Pickering - Last Filed: 02/13/17 17:50> Provider - Provider Date of Admission: 02/10/17 22:48 Attending physician: Anish Morales MD Consults: Consult. 1. Dr. Mg 2. Dr. Puentes Time Spent in preparation of Discharge (in minutes): 45 Hospital Course - Lab Results Lab Results: Most Recent Lab Values WBC 4.5 K/uL (4.8-10.8) L 02/13/17 07:05 RBC 4.26 Mil/uL (4.40-5.90) L 02/13/17 07:05 Hgb 14.8 g/dL (12.0-18.0) 02/13/17 07:05 Hct 42.7 % (35.0-51.0) 02/13/17 07:05 MCV 100.3 fL (80.0-94.0) H 02/13/17 07:05 MCH 34.7 pg (27.0-31.0) H 02/13/17 07:05 MCHC 34.6 g/dL (33.0-37.0) 02/13/17 07:05 RDW 13.0 % (11.5-14.5) 02/13/17 07:05 Plt Count 158 K/uL (130-400) 02/13/17 07:05 MPV 8.4 fL (7.2-11.7) 02/13/17 07:05 Neut % (Auto) 45.9 % (50.0-75.0) L 02/13/17 07:05 Lymph % (Auto) 36.0 % (20.0-40.0) 02/13/17 07:05 Willacy % (Auto) 10.4 % (0.0-10.0) H 02/13/17 07:05 Eos % (Auto) 6.2 % (0.0-4.0) H 02/13/17 07:05 Baso % (Auto) 1.5 % (0.0-2.0) 02/13/17 07:05 Neut # 2.1 K/uL (1.8-7.0) 02/13/17 07:05 Lymph # 1.6 K/uL (1.0-4.3) 02/13/17 07:05 Willacy # 0.5 K/uL (0.0-0.8) 02/13/17 07:05 Eos # 0.3 K/uL (0.0-0.7) 02/13/17 07:05 Baso # 0.1 K/uL (0.0-0.2) 02/13/17 07:05 PT 11.9 SECONDS (9.7-12.2) 02/10/17 21:23 INR 1.1 02/10/17 21:23 APTT 30 SECONDS (21-34) 02/10/17 21:23 Sodium 138 mmol/L (132-148) 02/13/17 07:05 Potassium 4.1 mmol/L (3.6-5.2) 02/13/17 07:05 Chloride 100 mmol/L (98-107) 02/13/17 07:05 Carbon Dioxide 29 mmol/L (22-30) 02/13/17 07:05 Anion Gap 13 (10-20) 02/13/17 07:05 BUN 11 mg/dL (9-20) 02/13/17 07:05 Creatinine 0.7 MG/DL (0.8-1.5) L 02/13/17 07:05 Est GFR ( Amer) > 60 02/13/17 07:05 Est GFR (Non-Af Amer) > 60 02/13/17 07:05 Random Glucose 85 mg/dL (75-110) 02/13/17 07:05 Hemoglobin A1c 5.1 % (4.2-6.5) 02/11/17 03:36 Calcium 9.0 mg/dl (8.6-10.4) 02/13/17 07:05 Phosphorus 3.9 mg/dL (2.5-4.5) 02/13/17 07:05 Magnesium 1.7 mg/dL (1.6-2.3) 02/13/17 07:05 Total Bilirubin 0.7 mg/dL (0.2-1.3) 02/13/17 07:05 AST 36 U/L (17-59) 02/13/17 07:05 ALT 28 U/L (21-72) 02/13/17 07:05 Alkaline Phosphatase 59 U/L (38-126) 02/13/17 07:05 Total Creatine Kinase 128 U/L (55-170) 02/10/17 21:23 CK-MB (Mass) 0.90 ng/mL (0.0-3.38) 02/10/17 21:23 Troponin I < 0.0120 ng/mL (0.00-0.120) 02/11/17 11:44 Troponin I, Quant < 0.0120 ng/mL (0.00-0.120) 02/10/17 21:23 Total Protein 7.5 g/dL (6.3-8.3) 02/13/17 07:05 Albumin 4.1 g/dL (3.5-5.0) 02/13/17 07:05 Globulin 3.4 gm/dL (2.2-3.9) 02/13/17 07:05 Albumin/Globulin Ratio 1.2 (1.0-2.1) 02/13/17 07:05 Triglycerides 49 mg/dL (0-149) 02/11/17 03:36 Cholesterol 145 mg/dL (0-199) 02/11/17 03:36 LDL Cholesterol Direct 71 mg/dL (0-129) 02/11/17 03:36 HDL Cholesterol 59 mg/dL (30-70) 02/11/17 03:36 Vitamin B12 596 pg/mL (239-931) 02/12/17 07:46 Folate 13.7 ng/mL 02/12/17 07:46 TSH 3rd Generation 1.06 mIU/L (0.46-4.68) 02/12/17 07:46 Prolactin 17.3 ng/mL (3.7-17.9) 02/10/17 23:34 Urine Color Yellow (YELLOW) 02/10/17 23:27 Urine Clarity Clear (Clear) 02/10/17 23:27 Urine pH 6.0 (5.0-8.0) 02/10/17 23:27 Ur Specific [place] 1.025 (1.003-1.030) 02/10/17 23:27 Urine Protein Negative mg/dL (NEGATIVE) 02/10/17 23: Urine Glucose (UA) Normal mg/dL (Normal) 02/10/17 23:27 Urine Ketones Negative mg/dL (NEGATIVE) 02/10/17 23: Urine Blood Negative (NEGATIVE) 02/10/17 23:27 Urine Nitrate Negative (NEGATIVE) 02/10/17 23:27 Urine Bilirubin Negative (NEGATIVE) 02/10/17 23: Urine Urobilinogen Normal mg/dL (0.2-1.0) 02/10/17 23: Ur Leukocyte Esterase Neg Brennan/uL (Negative) 02/10/17 23:27 Urine WBC (Auto) < 1 /hpf (0-5) 02/10/17: Urine RBC (Auto) 1 /hpf (0-3) 02/10/17 23: Urine Opiates Screen Negative (NEGATIVE) 02/10/17 23: Urine Methadone Screen Negative (NEGATIVE) 02/10/17 23: Ur Barbiturates Screen Negative (NEGATIVE) 02/10/17: Ur Phencyclidine Scrn Negative (NEGATIVE) 02/10/17 23: Ur Amphetamines Screen Negative (NEGATIVE) 02/10/17 23: U Benzodiazepines Scrn Negative (NEGATIVE) 02/10/17 23: U Oth Cocaine Metabols Negative (NEGATIVE) 02/10/17: U Cannabinoids Screen Negative (NEGATIVE) 02/10/17 23: Alcohol, Quantitative < 10 mg/dl (0-10) 02/10/17 21:23 - Hospital Course Hospital Course: Admit date - 02/10 DC date- 02/13 Attending: Dr. Jason Consults 1. Korya neuro 2. Behin - ENT Procedures- none No complications Discharge dx 1. Syncope 2. Alcohol abuse 3. Tinnitus HPI: see h/p Labs: see lab data section Hospital course This is a 52 yo male with past medical hx of alcohol abuse and dizziness presenting s/p syncopal episode. Pt was at his job earlier in the day. He works with boilers. This was about 3 PM. He was standing up and suddenly without warning collapsed to the ground. He cannot remember really the circumstances leading up to the event. The next thing he remembers is waking up on the ground feeling confused and weak. At that time, his co workers came to help him up. But the event was not witnessed. He continued to work for another 2 hours and then apparently a family member came to pick him up and took him into the hospital. He reports headache. He also says he has been feeling very dizzy in the past week. He denies fevers, chills, cough, vomiting, diarrhea, hematuria, bloody BMs. (1) Syncope Assessment & Plan: Strong suspicion for alcohol withdrawal seizure Head CT (02/10/17): no acute findings. Positive for Caden Cisterna Magna. Troponin negative X3. EKG on admission shows NSR 63 bpm; repeat shows NSR Prolactin WNL on admission UDS and Alcohol negative. f/u EEG as outpatient f/u carotid dopplers>>> negative f/u 2D ECHO- pending f/u orthostatic VS-->Patient is not orthostatic f/u Vitamin B12, Folate, TSH Neurology consult- Dr. Mg- help appreciated - continue hydration, CIWA - F/u EEG report -will order MRI for today because of persistent dizziness>>> negative for acute findings -will give 12.5 mg PO meclizine for dizziness (2) Alcohol abuse Assessment & Plan: [facility] protocol Received 1 banana bag * Librium taper- 25 mg PO tid * Ativan 1mg IV Q2H PRN seizure * Folic Acid 1 mg PO daily * Multivitamin 1 tab PO daily * Thiamine 100 mg PO daily Neurochecks Q4H Fall risk protocol Seizure precautions Aspiration precautions (3) Electrolyte abnormality Assessment & Plan: f/u AM K+ and Mg2+>> within normal limits (4) Prophylactic measure Assessment & Plan: Lovenox 40 mg PO daily Protonix 40 mg IVP daily- monitor platelets. SCDs PT eval/OT eval Seizure precautions Discharge instructions 1. Pt medically stable for dc. Pt should stop drinking. Pt should f/u with PMD. Please return if condition worsens. Pt should take prednisone taper 60 mg po daily for 10 days, then 40 mg po daily for 11 and 12, then 20 mg po daily, for 13 and 14. Please f/u with Dr. Puentes Discharge meds 1. thiamine 100 mg po daily 2. folic acid 1 mg po daily 3. meclizine 12.5 po tid prn dizziness 4. crestor 5 mg po hs 5. prednisone 60 mg po, 40 mg po, 20 mg po daily - Date & Time of H&P Date of H&P: 02/10/17 Time of H&P: 23:26 Discharge Exam - Head Exam Head Exam: ATRAUMATIC, NORMAL INSPECTION, NORMOCEPHALIC - Eye Exam Eye Exam: EOMI - ENT Exam ENT Exam: Mucous Membranes Moist - Neck Exam Neck exam: Full Rom, Normal Inspection - Respiratory Exam Respiratory Exam: NORMAL BREATHING PATTERN, UNREMARKABLE - Cardiovascular Exam Cardiovascular Exam: +S1, +S2 - GI/Abdominal Exam GI & Abdominal Exam: Normal Bowel Sounds - Extremities Exam Extremities exam: full ROM, normal inspection - Back Exam Back exam: NORMAL INSPECTION - Neurological Exam Neurological exam: Alert, Oriented x3 - Psychiatric Exam Psychiatric exam: Normal Affect, Normal Mood - Skin Skin Exam: Dry, Intact, Normal Color, Warm Discharge Plan - Discharge Medications Prescriptions: Folic Acid 1 mg PO DAILY #30 tab Meclizine [Antivert] 12.5 mg PO TID PRN #30 tab PRN Reason: Dizziness Multivitamins [Hexavitamin] 1 tab PO DAILY #30 tab predniSONE [predniSONE Tab] 60 mg PO DAILY #10 tab predniSONE [predniSONE Tab] 40 mg PO DAILY #2 tab predniSONE [predniSONE Tab] 20 mg PO DAILY #2 tab Rosuvastatin Calcium [Crestor] 5 mg PO HS #30 tab Thiamine [Vitamin B1 Tab] 100 mg PO DAILY #30 tab - Follow Up Plan Condition: STABLE Disposition: HOME/ ROUTINE Instructions: Prednisone (By mouth), Meclizine (By mouth), Thiamine (Vitamin B- 1) (By mouth), Folic Acid (By mouth), Multivitamins with Minerals (By mouth), Rosuvastatin (By mouth), Syncope (DC), Alcohol Intoxication (DC), Abuse of Alcohol (DC) Additional Instructions: Please stop drinking. Pt should take rx for prednisone 60 mg po daily for 10 days, then 40 mg PO daily for day 11 and day 12, then 20 mg po daily, for day 13 and day 14, then follow up with Dr. Puentes. Referrals: Rico Puentes MD [Staff Provider] - <Felipe Jason - Last Filed: 03/22/17 11:59> Provider - Provider Date of Admission: 02/10/17 22:48 Attending physician: Anish Morales MD Hospital Course - Lab Results Lab Results: Most Recent Lab Values WBC 4.5 K/uL (4.8-10.8) L 02/13/17 07:05 RBC 4.26 Mil/uL (4.40-5.90) L 02/13/17 07:05 Hgb 14.8 g/dL (12.0-18.0) 02/13/17 07:05 Hct 42.7 % (35.0-51.0) 02/13/17 07:05 MCV 100.3 fL (80.0-94.0) H 02/13/17 07:05 MCH 34.7 pg (27.0-31.0) H 02/13/17 07:05 MCHC 34.6 g/dL (33.0-37.0) 02/13/17 07:05 RDW 13.0 % (11.5-14.5) 02/13/17 07:05 Plt Count 158 K/uL (130-400) 02/13/17 07:05 MPV 8.4 fL (7.2-11.7) 02/13/17 07:05 Neut % (Auto) 45.9 % (50.0-75.0) L 02/13/17 07:05 Lymph % (Auto) 36.0 % (20.0-40.0) 02/13/17 07:05 [place] % (Auto) 10.4 % (0.0-10.0) H 02/13/17 07:05 Eos % (Auto) 6.2 % (0.0-4.0) H 02/13/17 07:05 Baso % (Auto) 1.5 % (0.0-2.0) 02/13/17 07:05 Neut # 2.1 K/uL (1.8-7.0) 02/13/17 07:05 Lymph # 1.6 K/uL (1.0-4.3) 02/13/17 07:05 [place] # 0.5 K/uL (0.0-0.8) 02/13/17 07:05 Eos # 0.3 K/uL (0.0-0.7) 02/13/17 07:05 Baso # 0.1 K/uL (0.0-0.2) 02/13/17 07:05 PT 11.9 SECONDS (9.7-12.2) 02/10/17 21:23 INR 1.1 02/10/17 21:23 APTT 30 SECONDS (21-34) 02/10/17 21:23 Sodium 138 mmol/L (132-148) 02/13/17 07:05 Potassium 4.1 mmol/L (3.6-5.2) 02/13/17 07:05 Chloride 100 mmol/L (98-107) 02/13/17 07:05 Carbon Dioxide 29 mmol/L (22-30) 02/13/17 07:05 Anion Gap 13 (10-20) 02/13/17 07:05 BUN 11 mg/dL (9-20) 02/13/17 07:05 Creatinine 0.7 MG/DL (0.8-1.5) L 02/13/17 07:05 Est GFR ( Amer) > 60 02/13/17 07:05 Est GFR (Non-Af Amer) > 60 02/13/17 07:05 Random Glucose 85 mg/dL (75-110) 02/13/17 07:05 Hemoglobin A1c 5.1 % (4.2-6.5) 02/11/17 03:36 Calcium 9.0 mg/dl (8.6-10.4) 02/13/17 07:05 Phosphorus 3.9 mg/dL (2.5-4.5) 02/13/17 07:05 Magnesium 1.7 mg/dL (1.6-2.3) 02/13/17 07:05 Total Bilirubin 0.7 mg/dL (0.2-1.3) 02/13/17 07:05 AST 36 U/L (17-59) 02/13/17 07:05 ALT 28 U/L (21-72) 02/13/17 07:05 Alkaline Phosphatase 59 U/L (38-126) 02/13/17 07:05 Total Creatine Kinase 128 U/L (55-170) 02/10/17 21:23 CK-MB (Mass) 0.90 ng/mL (0.0-3.38) 02/10/17 21:23 Troponin I < 0.0120 ng/mL (0.00-0.120) 02/11/17 11:44 Troponin I, Quant < 0.0120 ng/mL (0.00-0.120) 02/10/17 21:23 Total Protein 7.5 g/dL (6.3-8.3) 02/13/17 07:05 Albumin 4.1 g/dL (3.5-5.0) 02/13/17 07:05 Globulin 3.4 gm/dL (2.2-3.9) 02/13/17 07:05 Albumin/Globulin Ratio 1.2 (1.0-2.1) 02/13/17 07:05 Triglycerides 49 mg/dL (0-149) 02/11/17 03:36 Cholesterol 145 mg/dL (0-199) 02/11/17 03:36 LDL Cholesterol Direct 71 mg/dL (0-129) 02/11/17 03:36 HDL Cholesterol 59 mg/dL (30-70) 02/11/17 03:36 Vitamin B12 596 pg/mL (239-931) 02/12/17 07:46 Folate 13.7 ng/mL 02/12/17 07:46 TSH 3rd Generation 1.06 mIU/L (0.46-4.68) 02/12/17 07:46 Prolactin 17.3 ng/mL (3.7-17.9) 02/10/17 23:34 Urine Color Yellow (YELLOW) 02/10/17 23:27 Urine Clarity Clear (Clear) 02/10/17 23:27 Urine pH 6.0 (5.0-8.0) 02/10/17 23:27 Ur Specific [place] 1.025 (1.003-1.030) 02/10/17 23:27 Urine Protein Negative mg/dL (NEGATIVE) 02/10/17 23:27 Urine Glucose (UA) Normal mg/dL (Normal) 02/10/17 23:27 Urine Ketones Negative mg/dL (NEGATIVE) 02/10/17 23:27 Urine Blood Negative (NEGATIVE) 02/10/17 23:27 Urine Nitrate Negative (NEGATIVE) 02/10/17 23:27 Urine Bilirubin Negative (NEGATIVE) 02/10/17 23:27 Urine Urobilinogen Normal mg/dL (0.2-1.0) 02/10/17 23:27 Ur Leukocyte Esterase Neg Brennan/uL (Negative) 02/10/17 23:27 Urine WBC (Auto) < 1 /hpf (0-5) 02/10/17 23:27 Urine RBC (Auto) 1 /hpf (0-3) 02/10/17 23:27 Urine Opiates Screen Negative (NEGATIVE) 02/10/17 23:27 Urine Methadone Screen Negative (NEGATIVE) 02/10/17 23:27 Ur Barbiturates Screen Negative (NEGATIVE) 02/10/17 23:27 Ur Phencyclidine Scrn Negative (NEGATIVE) 02/10/17 23:27 Ur Amphetamines Screen Negative (NEGATIVE) 02/10/17 23:27 U Benzodiazepines Scrn Negative (NEGATIVE) 02/10/17 23:27 U Oth Cocaine Metabols Negative (NEGATIVE) 02/10/17 23:27 U Cannabinoids Screen Negative (NEGATIVE) 02/10/17 23:27 Alcohol, Quantitative < 10 mg/dl (0-10) 02/10/17 21:23 Attending/Attestation - Attestation I have personally seen and examined this patient.: Yes I have fully participated in the care of the patient.: Yes I have reviewed all pertinent clinical information, including history, physical exam and plan: Yes Notes (Text): Patient seen and examined with the resident. Agree with the resident's evaluation, assessment and plan. Syncope likely due to alcohol withdrawal seizure Alcohol abuse and acute withdrawal Delerium Tremens
--- NOTE | 2017-02-13 20:41 | CARD ---
APPROVED REPORT EXAM: Two-dimensional and M-mode echocardiogram with Doppler and color Doppler. Other Information Quality : GoodRhythm : NSR INDICATION Dizziness and Vertigo Syncope ALCOHOL ABUSE, SYNCOPAL EPISODES VS. SEIZURES M-Mode DIMENSIONS RVDd2.64 (2.1-3.2cm)Left Atrium (MM)3.54 (2.5-4.0cm) IVSd0.69 (0.7-1.1cm)Aortic Root3.05 (2.2-3.7cm) LVDd5.55 (4.0-5.6cm)Aortic Cusp Exc.2.19 (1.5-2.0cm) PWd0.83 (0.7-1.1cm)FS (%) 44 % LVDs3.12 (2.0-3.8cm)LVEF (%)74 (>50%) Mitral Valve MV E Ohcisboh06.0cm/sMV A Melpcoiy15.1cm/sE/A ratio0.9 TDI E/Lateral E'0.0E/Medial E'0.0 Tricuspid Valve TR Peak Gioqdfwi152jb/sTR Peak Gr.[id number] LEFT VENTRICLE The left ventricle is normal size. There is normal left ventricular wall thickness. The left ventricular function is normal. The left ventricular ejection fraction is within the normal range. There is normal LV segmental wall motion. Transmitral Doppler flow pattern is Grade I-abnormal relaxation pattern. RIGHT VENTRICLE The right ventricle is normal size. There is normal right ventricular wall thickness. The right ventricular systolic function is normal. ATRIA The left atrium size is normal. The right atrium size is normal. AORTIC VALVE The aortic valve is normal in structure. No aortic regurgitation is present. MITRAL VALVE The mitral valve is normal in structure. There is no evidence of mitral valve prolapse. TRICUSPID VALVE There is trace tricuspid regurgitation. GREAT VESSELS The aortic root is normal in size. The IVC collapses <50% with inspiration. PERICARDIAL EFFUSION There is no pericardial effusion. <Conclusion> The left ventricle is normal size. There is normal left ventricular wall thickness. The left ventricular function is normal. The left ventricular ejection fraction is within the normal range. There is normal LV segmental wall motion. Transmitral Doppler flow pattern is Grade I-abnormal relaxation pattern.
--- NOTE | 2017-02-14 01:58 | CARD ---
APPROVED REPORT EKG Measurement Heart [id number] [id number] <Conclusion> Sinus bradycardia Otherwise normal ECG
--- NOTE | 2017-02-14 17:23 | CARD ---
APPROVED REPORT EKG Measurement Heart [id number] [place] [id number] <Conclusion> Normal sinus rhythm Normal ECG
--- NOTE | 2017-02-14 17:25 | CARD ---
APPROVED REPORT EKG Measurement Heart [id number] [place] [id number] <Conclusion> Sinus bradycardia Otherwise normal ECG
== END 2017-02-13 19:00 | disposition home or self-care (01) | DRG 751 ==
LOC: C.ER 20:40 → C.9E 22:48 → C.6T 23:14
PROVIDERS: ADMIT Family Medicine; ATTEND Family Medicine
DX: F10.239 Alcohol dependence with withdrawal, unspecified (principal); G40.89 Other seizures; R55 Syncope and collapse; H93.13 Tinnitus, bilateral; R00.1 Bradycardia, unspecified

== ENCOUNTER 2017-07-03 17:55 | Inpatient (IN) | payer MEDICAID, OTHER ==
--- NOTE | 2017-07-03 18:23 | C.PDOC ---
History Of Present Illness <Dave Marlow - Last Filed: 07/04/17 00:41> <BriamatiPako - Last Filed: 07/04/17 01:29> 52 y/o M c no PMHx p/w alcohol intoxication. Began drinking 12 beers daily after losing job months ago. Denies fever, pain, vomiting. Denies current SI/HI/ hallucinations. Has felt depressed in the past and thought about killing himself 4 days ago. (Dave Marlow) <Dave Marlow - Last Filed: 07/04/17 00:41> <BriamatiPako - Last Filed: 07/04/17 01:29> Time Seen by Provider: 07/03/17 18:04 Chief Complaint (Nursing): Substance Abuse Past Medical History Family History: States: Unknown Family Hx - Social History Hx Alcohol Use: Yes Hx Substance Use: No - Immunization History Hx Tetanus Toxoid Vaccination: No Hx Influenza Vaccination: No Hx Pneumococcal Vaccination: No <Dave Marlow - Last Filed: 07/04/17 00:41> Vital Signs: Last Vital Signs Temp 98.8 F 07/04/17 01:03 Pulse 66 07/04/17 01:03 Resp 16 07/04/17 01:03 BP 143/89 07/04/17 01:03 Pulse Ox 99 07/04/17 01:03 Review Of Systems Except As Marked, All Systems Reviewed And Found Negative. Constitutional: Negative for: Fever Cardiovascular: Negative for: Chest Pain <Dave Marlow - Last Filed: 07/04/17 00:41> Physical Exam - Physical Exam Appears: No Acute Distress Skin: No Rash Head: Normacephalic Eye(s): bilateral: PERRL Oral Mucosa: Moist Neck: Supple Cardiovascular: Rhythm Regular Respiratory: Normal Breath Sounds Gastrointestinal/Abdominal: Soft, No Tenderness Back: No CVA Tenderness, No Vertebral Tenderness Extremity: No Tenderness, No Swelling Pulses: Left Radial: Normal, Right Radial: Normal Neurological/Psych: Normal Speech <Dave Marlow - Last Filed: 07/04/17 00:41> ED Course And Treatment - Laboratory Results Result Diagrams: 07/03/17 18:51 07/03/17 18:51 O2 Sat by Pulse Oximetry: 100 <Dave Marlow - Last Filed: 07/04/17 00:41> - Laboratory Results Result Diagrams: 07/03/17 18:51 07/03/17 18:51 <Pako Salinas - Last Filed: 07/04/17 01:29> Medical Decision Making <Dave Marlow - Last Filed: 07/04/17 00:41> <BradPako - Last Filed: 07/04/17 01:29> Medical Decision Making: Will hydrate patient with banana bag. Vital signs normal, no tachycardia or hypertension. EKG NSR 70 bpm, no ST/T wave changes. Pending call back from Dr. Pitt for detox admission. Handed off to ED night team. (Dave Marlow) Disposition <Dave Marlow - Last Filed: 07/04/17 00:41> Discussed With Dr.: Chinmay Pitt Comment: accepted the pt on hisservice and took over the care at 1:15 AM Doctor Will See Patient In The: Hospital Counseled Patient/Family Regarding: Studies Performed, Diagnosis - Disposition Disposition Time: : <Pako Salinas - Last Filed: 07/04/17 01:29> - Disposition Disposition: HOSPITALIZED Condition: FAIR Forms: Engiver (Danish) - Clinical Impression Clinical Impression: Alcohol abuse Decision To Admit <KashmirDave Martinez - Last Filed: 07/04/17 00:41> - Pt Status Changed To: Hospital Disposition Of: Inpatient - Admit Certification Admit to Inpatient:: After my assessment, the patient will require hospitalization for at least two midnights. This is because of the severity of symptoms shown, intensity of services needed, and/or the medical risk in this patient being treated as an outpatient. - InPatient: Physician Admission Certification: I certify that this patient requires 2 or more midnights of care for the following reason:: After my assessment, the patient will require hospitalization for at least two midnights. This is because of the severity of symptoms shown, intensity of services needed, and/or the medical risk in this patient being treated as an outpatient. - . Bed Request Type: Detox Admitting Physician: Chinmay Pitt <Pako Salinas - Last Filed: 07/04/17 01:29> - . Patient Diagnosis: Alcohol abuse
[2017-07-03] MEDS ORDERED: Multivitamin (MVI) 10 ML, Thiamine 100 MG, Folic Acid 1 MG in Sodium Chloride 0.9% 1,00... IV ONE (18:39)
[2017-07-03 19:00] LABS: RBC URINE 2 /hpf (0-3); URINE BACTERIA RARE (<OCC); URINE BILIRUBIN NEGATIVE (NEGATIVE); URINE COLOR Yellow (YELLOW); URINE GLUCOSE (UA) NORMAL (Normal); URINE KETONE NEGATIVE (NEGATIVE); URINE LEUKOCYTE ESTERASE NEG Leu/uL (Negative); URINE PROTEIN 1+ mg/dL (NEGATIVE); URINE UROBILINOGEN NORMAL mg/dL (0.2-1.0)
[2017-07-03 19:02] LABS: URINE BLOOD NEGATIVE (NEGATIVE)
[2017-07-03 19:16] LABS: BASO # 0.1 K/uL (0.0-0.2); EOS # 0.1 K/uL (0.0-0.7); LYMPH # 0.9 K/uL (1.0-4.3); MONO # 0.6 K/uL (0.0-0.8)
[2017-07-03 19:33] LABS: BASO % 3.1 % (0.0-2.0); EOS % 2.4 % (0.0-4.0); HEMATOCRIT 36.7 % (35.0-51.0); LYMPH % 26.2 % (20.0-40.0); MEAN CELL VOLUME 100.5 fL (80.0-94.0); MEAN CORPUSCULAR HEMOGLOBIN 34.9 pg (27.0-31.0); MEAN CORPUSCULAR HGB CONC 34.7 g/dL (33.0-37.0); MEAN PLATELET VOLUME 8.3 fL (7.2-11.7); MONO % 17.5 % (0.0-10.0); PLATELET COUNT 106 K/uL (130-400); RED CELL DISTRIBUTION WIDTH 13.5 % (11.5-14.5); WHITE BLOOD COUNT 3.4 K/uL (4.8-10.8)
[2017-07-03 19:35] LABS: CHLORIDE 95 mmol/L (98-107); SODIUM 132 mmol/L (132-148)
[2017-07-03 19:36] LABS: POTASSIUM 3.3 mmol/L (3.6-5.2)
[2017-07-03 19:37] LABS: GFR AFRICAN-AMERICAN > 60
[2017-07-03 19:38] LABS: ALB/GLOB RATIO 1.2 (1.0-2.1); ALKALINE PHOSPHATASE 87 U/L (38-126); ALT/SGPT 133 U/L (21-72); AST/SGOT 186 U/L (17-59); BILIRUBIN,TOTAL 0.7 mg/dL (0.2-1.3); BLOOD UREA NITROGEN 8 mg/dL (9-20); CALCIUM 8.6 mg/dl (8.6-10.4); CARBON DIOXIDE 22 mmol/L (22-30); GLUCOSE,RANDOM 110 mg/dL (75-110); TOTAL PROTEIN 7.9 g/dL (6.3-8.3)
[2017-07-03 19:39] LABS: ALCOHOL SERUM 87 mg/dl (0-10)
[2017-07-03 21:43] LABS: BASOPHIL 5 % (0-2); EOSINOPHIL 1 % (0-4); NEUTROPHIL 48 % (50-75); TOTAL CELLS COUNTED 100
[2017-07-03 21:46] LABS: LARGE PLATELETS PRESENT
[2017-07-04] MEDS ORDERED: Potassium Chloride 20 mEq ER Tab PO STA (01:50)
--- NOTE | 2017-07-04 03:13 | PCM.BM ---
<Cici Gomez - Last Filed: 07/04/17 03:13> Treatment Plan Problems - Problems identified on initial assessmt Ineffective Coping Skills Date Initiated: 07/04/17 Time Initiated: 03:13 Assessment reference: NA Status: Active Treatment assets and liabiliti Patient Assests: ADL independent Patient Liabilities: poor support system, substance abuse, language/speech - Milieu Protocol Maintain good personal hygiene: daily Encourage regular showers, daily Remind patient to perform daily oral care, other Assist patient to perform ADL's Maintain personal safety: every shift Educate patient to report safety concerns to staff, every shift Monitor environment for contraband/sharps Medication safety: Monitor for expected outcome, potential side effects: every shift, Assess barriers to learning: every shift, Assess readiness for medication education: every shift <Vipin Barros - Last Filed: 07/04/17 11:25> - Diagnosis (1) Alcohol use disorder, severe, dependence Status: Acute Interventions: 07/04/17 11:25 * Assess 7x/week regarding severity of withdrawal * Educate regarding risks, benefits, side effects and alternatives of medications * Use Motivational Interviewing for abstinence * Use CBT for relapse prevention * Medication management for withdrawal symptoms * Encourage medication assisted treatment *
[2017-07-04] MEDS: Multiple Vitamins Tab PO SCH (10:37)
[2017-07-04 11:25] LABS: CHLORIDE 97 mmol/L (98-107); POTASSIUM 3.7 mmol/L (3.6-5.2); SODIUM 131 mmol/L (132-148)
[2017-07-04 11:28] LABS: BLOOD UREA NITROGEN 6 mg/dL (9-20); CARBON DIOXIDE 24 mmol/L (22-30); GFR AFRICAN-AMERICAN > 60; GLUCOSE,RANDOM 132 mg/dL (75-110)
[2017-07-04 11:29] LABS: CALCIUM 9.1 mg/dl (8.6-10.4); MAGNESIUM 1.3 mg/dL (1.6-2.3)
--- NOTE | 2017-07-04 13:20 | PCM.PSYCH ---
Initial Psychiatric Evaluation - Initial Psychiatric Evaluation Type of Admission: Voluntary Legal Status: Capacity Chief Complaint (in patient's own words): "Alcohol" History of Present Illness and Precipitating Events: A 52 year old male, single, is admitted for alcohol withdrawal and detox. Pt started drinking heavily 4 years ago due to relationship and financial issues. Pt admits to drinking 10-12 cans of 24 oz beer daily for the past 3 months. Pt is feeling anxious, has resting tremors, feels weak, and having difficulty walking. Pt denies feeling depressed, SI, HI, auditory or visual hallucinations. This is the first time he has ever been to a detox program. Pt denies taking any drugs currently or in the past. Denies using any tobacco based products currently or in the past. Pt denies having any psychiatric conditions or any medical issue.s Denies being hospitalized for any psychiatric conditions in the past. Pt is a regional construction manager. Lost his job 2 months ago because he didn't go to work for more than a week. Pt moved from [place] and has been living in the [facility] since 2003. He has never been , has no children and lives alone. Allergies: NKDA Meds: Denies PMH: denies family Hx: Denies Current Medications: Active Medications Generic Name Dose Route Start Last Admin Trade Name Freq PRN Reason Stop Dose Admin Clonidine HCl 0.1 mg 07/04/17 02:21 Catapres PO Q4H PRN Symptoms of alcohol withdrawl Folic Acid 1 mg 07/04/17 10:00 07/04/17 10:37 Folic Acid PO 1 mg DAILY KRISTIN Administration Lorazepam 1 mg 07/04/17 11:00 Ativan PO Q4H PRN Symptoms of alcohol withdrawl Lorazepam 2 mg 07/04/17 11:00 07/04/17 11:26 Ativan PO 07/09/17 10:59 2 mg Q6H KRISTIN Administration Taper Multivitamins 1 tab 07/04/17 10:00 07/04/17 10:37 Hexavitamin PO 1 tab DAILY KRISTIN Administration Pneumococcal Polyvalent Vaccine 0.5 ml 07/07/17 10:00 Pneumovax 23 Vaccine IM 07/07/17 10:01 .ONCE ONE Thiamine HCl 100 mg 07/04/17 10:00 07/04/17 10:37 Vitamin B1 Tab PO 100 mg DAILY KRISTIN Administration Trazodone HCl 50 mg 07/04/17 02:23 Desyrel PO HS PRN Insomnia Past Psychiatric History - Past Psychiatric History Previous Treatment History: None Pertinent Medical Hx (Current Medical&Sleep Prob, Allergies): Allergies Allergy/AdvReac Type Severity Reaction Status Date / Time No Known Allergies Allergy Verified 02/10/17 20:48 No Known Home Med 07/03/17 Review of Systems - Constitutional Constitutional: Weakness - Musculoskeletal Musculoskeletal: Abnormal Gait - Neurological Neurological: Tremor - Psychiatric Psychiatric: As Per HPI, Anxiety. absent: Abnormal Sleep Pattern, Anhedonia, Auditory Hallucinations, Behavioral Changes, Change in Appetite, Confusion, Depression, Hallucinations, Homicidal Ideation, Hopelessness, Irritability, Paranoia, Suicidal Ideation, Visual Hallucinations Mental Status Examination - Personal Presentation Personal Presentation: Looks stated age - Affect Affect: Constricted - Reliability in Providing Information Reliability in Providing Information: Fair - Speech Speech: Organized - Mood Mood: Anxious - Formal Thought Process Formal Thought Process: No Impairment - Obsessions/Compulsions Obsessions: No Compulsions: No - Cognitive Functions Orientation: Person, Place, Situation, Time Sensorium: Drowsy Attention/Concentration: Attentive Abstract Thinking: [place] Estimate of Intelligence: Average Judgement: Intact, as evidence by: Insight regarding need for hospitalization Memory: Recent intact, as evidence by: Ability to recall events of the day, Remote intact, as evidenced by: Abilit to recall sig. life events - Risk Risk: Withdrawal, Falls, Diminished functioning - Strength & Assets Inventory Strength & Assets Inventory: Employment history, Cooperative - Limitations Limitations: Other DSM 5 DX - DSM 5 DSM 5 Diagnosis: Alcohol withdrawal Alcohol Use Disorder- Severe - Recommended/Plan of Treatment Treatment Recommendations and Plan of Treatment: Ativan Detox due to high LFTs gapapentin for augmentation As needed meds and vitamins Attend groups and activities AR for abstinence and CBT for relapse prevention Support and pychoeducation Consider and encourage MAT Speak with counselors about looking into long term care administrator rehab programs after discharge 33 min Projected ELOS: 5 days Prognosis: Good - Smoking Cessation Smoking Cessation Initiated: Yes
--- NOTE | 2017-07-04 13:36 | CARD ---
APPROVED REPORT EKG Measurement Heart [id number] <Conclusion> Normal sinus rhythm Normal ECG
[2017-07-05] MEDS: Multiple Vitamins Tab PO SCH (09:37)
--- NOTE | 2017-07-05 11:12 | PCM.PYCHPN ---
Psychiatric Progress Note - Psychiatric Progress Note Patient seen today, length of contact: 15 Patient Chief Complaint: "Feels a little bit better" Problems Identified/Issues Discussed: The pt is seen, chart reviewed, case discussed with staff. The pt is compliant with medications and reports no side-effects. PT slept well. Pt is complaining of fewer tremors compared to yesterday. Also complaining of dizzines Denies any SI, or any auditory or visual hallucinations Encouraged Pt to speak with SW about rehab and IOP to attend after discharge Medication Change: Yes (Daily detox) Medical Record Reviewed: Yes Mental Status Examination - Cognitive Function Orientation: Person, Place, Situation, Time Memory: Intact Attention: WNL Concentration: WNL Association: WNL Fund of Knowledge: WNL - Mood Mood: Anxious - Affect Affect: Constricted - Speech Speech: Appropriate - Formal Thought Process Formal Thought Process: No Impairment - Suicidal Ideation Suicidal Ideation: No - Homicidal Ideation Homicidal Ideation: No Goal/Treatment Plan - Goal/Treatment Plan Progress Toward Problem(s) and Goals/Treatment Plan: Ativan Detox due to high LFTs gapapentin for augmentation As needed meds and vitamins Attend groups and activities AL for abstinence and CBT for relapse prevention Support and pychoeducation Consider and encourage MAT Speak with counselors about looking into print traffic manager rehab programs after discharge Estimated Date of D/C: 07/10/17 - Smoking Cessation Smoking Cessation Initiated: No
[2017-07-06] MEDS: Multiple Vitamins Tab PO SCH (10:08)
--- NOTE | 2017-07-06 13:09 | PCM.PYCHPN ---
Psychiatric Progress Note - Psychiatric Progress Note Patient seen today, length of contact: 16 min Patient Chief Complaint: "Dizzy" Problems Identified/Issues Discussed: The pt is seen, chart reviewed, case discussed with staff. Support given, CBT and [place] used briefly No new symptoms reported, improving slowly and needs more time No SEs from medications, risks discussed. After care discussed - [facility] rehab on Sunday Medication Change: Yes (Daily detox) Medical Record Reviewed: Yes Mental Status Examination - Cognitive Function Orientation: Person, Place, Situation, Time Memory: Intact Attention: WNL Concentration: WNL Association: WNL Fund of Knowledge: WNL - Mood Mood: Anxious - Affect Affect: Constricted - Speech Speech: Appropriate - Formal Thought Process Formal Thought Process: No Impairment - Suicidal Ideation Suicidal Ideation: No - Homicidal Ideation Homicidal Ideation: No Goal/Treatment Plan - Goal/Treatment Plan Need for Continued Stay: Discharge may exacerbated symptoms, Severe functional impairment Progress Toward Problem(s) and Goals/Treatment Plan: Ativan Detox due to high LFTs gapapentin for augmentation As needed meds and vitamins Attend groups and activities [place] for abstinence and CBT for relapse prevention Support and pychoeducation Consider and encourage MAT Speak with counselors about looking into half-way rehab programs after discharge Estimated Date of D/C: 07/09/17
[2017-07-07] MEDS ORDERED: Pneumococcal 23-Valent Vaccine IM ONE (10:00)
[2017-07-07] MEDS ORDERED: Influenza Vaccine 60 mcg/0.5 mL SYR (4YR UP) IM ONE (10:00)
[2017-07-07] MEDS: Multiple Vitamins Tab PO SCH (10:25)
--- NOTE | 2017-07-07 22:22 | PCM.PYCHPN ---
Psychiatric Progress Note - Psychiatric Progress Note Patient seen today, length of contact: 16 min Patient Chief Complaint: I'm feeling better Problems Identified/Issues Discussed: The pt is seen, chart reviewed, case discussed with staff. Support given, CBT and [place] used briefly No new symptoms reported, improving slowly and needs more time No SEs from medications, risks discussed. After care discussed DSM 5 Symptoms Update: etoh use d/o dependence severe, with withdrawal symptoms Medication Change: Yes (Daily detox) Medical Record Reviewed: Yes Mental Status Examination - Cognitive Function Orientation: Person, Place, Situation, Time Memory: Intact Attention: WNL Concentration: WNL Association: WN Fund of Knowledge: WN - Mood Mood: Other (I'm feeling better) - Affect Affect: Constricted - Speech Speech: Appropriate - Formal Thought Process Formal Thought Process: No Impairment - Suicidal Ideation Suicidal Ideation: No - Homicidal Ideation Homicidal Ideation: No Goal/Treatment Plan - Goal/Treatment Plan Need for Continued Stay: Discharge may exacerbated symptoms, Severe functional impairment Progress Toward Problem(s) and Goals/Treatment Plan: Continue medications Support and psychoeducation daily Attend groups and activities daily After care planning by JHOAN Estimated Date of D/C: 07/09/17 - Smoking Cessation Smoking Cessation Initiated: Yes
[2017-07-08 06:47] VITALS: RESP 18
[2017-07-08] MEDS: Multiple Vitamins Tab PO SCH (10:24)
--- NOTE | 2017-07-08 15:26 | PCM.PYCHPN ---
Psychiatric Progress Note - Psychiatric Progress Note Patient seen today, length of contact: 16 min Patient Chief Complaint: I'm doing better Problems Identified/Issues Discussed: The pt is seen, chart reviewed, case discussed with staff. Support given, CBT and [place] used briefly No new symptoms reported, Pt reproted improving in his etoh withdrawal symptoms as well as he is able to walk without walker. No SEs from medications, risks discussed. After care discussed Diagnostic Results: no new lab DSM 5 Symptoms Update: Alcohol withdrawal Alcohol Use Disorder- Severe Medication Change: Yes (Daily taper) Medical Record Reviewed: Yes Mental Status Examination - Cognitive Function Orientation: Person, Place, Situation, Time Memory: Intact Attention: WNL Concentration: WNL Association: [facility] Fund of Knowledge: [facility] Decription of patient's judgement and insights: good/good - Mood Mood: Neutral, Other (I'm doing better) - Affect Affect: Broad - Speech Speech: Appropriate - Formal Thought Process Formal Thought Process: No Impairment Psychotic Thoughts and Behaviors: denied Additional comments: denied SI, HI, intent or plan - Suicidal Ideation Suicidal Ideation: No - Homicidal Ideation Homicidal Ideation: No Goal/Treatment Plan - Goal/Treatment Plan Need for Continued Stay: Discharge may exacerbated symptoms, Severe functional impairment Progress Toward Problem(s) and Goals/Treatment Plan: Continue medications Support and psychoeducation daily Attend groups and activities daily After care planning by JHOAN Estimated Date of D/C: 07/09/17 - Smoking Cessation Smoking Cessation Initiated: Yes
[2017-07-09 06:17] VITALS: PULSE 78
--- NOTE | 2017-07-09 08:48 | PCM.PYCHDC ---
Mental Status Examination - Mental Status Examination Orientation: Person, Place, Situation, Time Memory: Impaired Mood: Anxious Affect: Constricted Speech: Appropriate Attention: WNL Concentration: Poor Association: WNL Fund of Knowledge: WNL Formal Thought Process: No Impairment Suicidal Ideation: No Current Homicidal Ideation?: No Discharge Summary - Discharge Note Reason for Hospitalization: Alcohol detox Consultations:: List each consultation separately and include: 1. Reason for request. 2. Findings. 3. Follow-up Summary of Hospital Course include:: 1. Description of specific treatment plan utilized for patients during their course of treatmen. 2. Summarize the time- course for resolution of acute symptoms and/or regressed behaviors. 3. Describe issues identified and worked on during hospitalization. 4. Describe medication utilized. 5. Describe medical problems identified and treated. 6. Reassessment of suicide risk Summary of Hospital Course: The pt is seen today, case discussed, chart reviewed. On admission: A 52 year old male, single, is admitted for alcohol withdrawal and detox. Pt started drinking heavily 4 years ago due to relationship and financial issues. Pt admits to drinking 10-12 cans of 24 oz beer daily for the past 3 months. Pt is feeling anxious, has resting tremors, feels weak, and having difficulty walking. Pt denies feeling depressed, SI, HI, auditory or visual hallucinations. This is the first time he has ever been to a detox program. Pt denies taking any drugs currently or in the past. Denies using any tobacco based products currently or in the past. Pt denies having any psychiatric conditions or any medical issue.s Denies being hospitalized for any psychiatric conditions in the past. 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 Pt moved from [place] and has been living in the [facility] since 2003. He has never been , has no children and lives alone. Allergies: NKDA Meds: Denies PMH: denies family Hx: Denies Hospital course: The pt was admitted and started on treatment with psychotherapy, support, psychoeducation and medications. NC and CBT used. The pt attended groups and activities, as well as milieu therapy. All the risks and benefits of medications are discussed and the patient understood and agreed. The pt improved with the treatments provided. After care discussed with the patient. He went to [facility] - Final Diagnosis (DSM 5) Condition upon Discharge: IMPROVED DSM 5: Alcohol withdrawal Alcohol Use Disorder- Severe Disposition: REHAB FACILITY/REHAB UNIT Follow-up Treatment Plan: Attend [facility] rehab Follow after care plan as discussed. Use relapse prevention skills Return to ER or call 911 if suicidal, homicidal or symptoms relapse. Stay away from stress, alcohol and drugs. See primary doctor regularly and get labs. - Smoking Cessation Smoking Cessation Medication prescribed: No - Antipsychotic Medications Pt discharged on 2 or more routine antipsychotic medications: No
[2017-07-09] MEDS: Multiple Vitamins Tab PO SCH (09:17)
[2017-07-09 10:32] VITALS: BP 119/83; TEMP 98.2; O2SAT 98
== END 2017-07-09 14:15 | DRG 751 ==
LOC: C.ER 17:55 → C.7D 07-04 01:28
PROVIDERS: ADMIT Psychiatry & Neurology Psychiatry; ATTEND Psychiatry & Neurology Psychiatry
PROC: HZ2ZZZZ Detoxification Services for Substance Abuse Treatment (ICD-10-PCS; principal; 2017-07-04)
PROC: HZ56ZZZ Individual Psychotherapy for Substance Abuse Treatment, Psychoeducation (ICD-10-PCS; 2017-07-04)
PROC: HZ59ZZZ Individual Psychotherapy for Substance Abuse Treatment, Supportive (ICD-10-PCS; 2017-07-04)
DX: F10.239 Alcohol dependence with withdrawal, unspecified (principal); Z59.9 Problem related to housing and economic circumstances, unspecified